=== PATIENT | male | born 1985 | race Caucasian/White ===

== ENCOUNTER 2021-10-15 08:42 | Inpatient (IN) | payer MEDICAID ==
[~2021-10-15] VITALS: Ht 188 cm; Wt 113.9 kg
[2021-10-15] VITALS (10 sets, daily range): BP systolic 122–146; BP diastolic 71–86
--- NOTE | 2021-10-15 08:57 | NUR ---
BIB RA C/O LLQ PAIN RADIATING TO R AND L UPPER QUADRANT. ADMITS N/V. DENIES HX OF ABDOMINAL PROBLEMS. DENIES GERD. AAOX4, BREATHING EVEN AND UNLABORED, PULSES 2+ BILATERALLY, SKIN IS WARM TO TOUCH. ASSISTED TO ER BED 3. COMFORT MEASURES IN PLACE.
[2021-10-15] MEDS ORDERED: ONDANSETRON HCL/PF 4 MG/2 ML VIAL ONE (09:08)
[2021-10-15] MEDS ORDERED: MORPHINE SULFATE INJ 4 MG/ML DISP.SYRIN ONE ×2 (09:09→11:53)
[2021-10-15] MEDS ORDERED: MORPHINE SULFATE INJ 2 MG/ML DISP.SYRIN IV ONE ×2 (09:30→12:00)
[2021-10-15] MEDS ORDERED: IV NS 0.9% 1,000 ML BAG IV ONE ×2 (09:30→12:00)
[2021-10-15] MEDS ORDERED: ONDANSETRON HCL/PF 4 MG/2 ML VIAL IV ONE (09:30)
[2021-10-15 09:33] LABS: BASOPHILS # (AUTO) 0.2 K/uL (0.0-0.2); BASOPHILS % (AUTO) 1.3 % (0.0-2.0); EOSINOPHILS % (AUTO) 0.1 % (0.0-6.0); HEMATOCRIT 47 % (39-51); HEMOGLOBIN 17.6 g/dL (13.5-17.5); LYMPHOCYTES # (AUTO) 0.6 K/uL (0.8-4.8); LYMPHOCYTES % (AUTO) 5.3 % (20.0-44.0); MEAN CORPUSCULAR HGB CONC 38 g/dl (31.0-36.0); MEAN CORPUSCULAR VOLUME 89 fL (80-96); MONOCYTES # (AUTO) 0.8 K/uL (0.1-1.30); MONOCYTES % (AUTO) 6.7 % (2.0-12.0); NEUTROPHILS # (AUTO) 10.2 K/uL (1.8-8.9); NEUTROPHILS % (AUTO) 86.6 % (43.0-81.0); PLATELET COUNT (AUTO) 263 K/uL (150-450); RED BLOOD CELL COUNT(AUTO) 5.22 MIL/uL (4.5-6.0); WHITE BLOOD COUNT (AUTO) 11.8 K/uL (4.3-11.0)
--- NOTE | 2021-10-15 10:08 | NUR ---
IV FLUIDS RUNNING. PT TOLERATING WELL.
--- NOTE | 2021-10-15 10:20 | NUR ---
URINE SPECIMEN WAS COLLECTED AND SENT TO THE LAB
[2021-10-15] MEDS ORDERED: IOHEXOL-300 100 ML VIAL IV ONE (10:39)
[2021-10-15] MEDS ORDERED: IV NS 0.9% 250 ML IV ONE (10:40)
[2021-10-15] MEDS ORDERED: CT SWABBABLE VALVE TRANS SET 1 EA INFUS.SET MC ONE (10:40)
[2021-10-15 11:23] LABS: BILIRUBIN,URINE SMALL (NEGATIVE); COLOR,URINE YELLOW (YELLOW); LEUKOCYTE ESTERASE ,URINE NEGATIVE (NEGATIVE); NITRITE, URINE NEGATIVE (NEGATIVE); PH,URINE 5.5 (5.0-8.0); PROTEIN,URINE NEGATIVE (NEGATIVE); UGLUCOSE 500 MG/DL mg/dL (NEGATIVE); UROBILINOGEN,URINE 0.2 EU/dL (0.2)
[2021-10-15 11:27] LABS: BACTERIA,URINE None seen /HPF (None Seen); RBC,URINE 0-2 /HPF (0-2); SQUAMOUS EPITHELIAL CELL,UR Rare /HPF (None Seen); WBC,URINE NONE SEEN /HPF (0-3)
[2021-10-15 11:55] LABS: ALBUMIN 3.9 g/dL (3.4-5.0); BILIRUBIN,DIRECT 0.1 mg/dL (0.0-0.2); BILIRUBIN,TOTAL 0.9 mg/dL (0.2-1.0); CALCIUM, SERUM 7.7 mg/dL (8.5-10.1); CREATININE 1.2 mg/dL (0.6-1.3); POTASSIUM 5.7 mmol/L (3.5-5.1); TOTAL PROTEIN, SERUM 8.1 g/dL (6.4-8.2)
--- NOTE | 2021-10-15 12:09 | NUR ---
MOVE SHEET SUBMITTED AND CALLED FOR [facility] BED.
--- NOTE | 2021-10-15 12:30 | NUR ---
covid sample obtained and sent to lab
--- NOTE | 2021-10-15 12:37 | NUR ---
US TECH AT THE BEDSIDE
--- NOTE | 2021-10-15 12:39 | NUR ---
CALLED SURGERY DR. LAW [facility] [phone]
--- NOTE | 2021-10-15 12:41 | NUR ---
ACCUCHRUSTY 422, DR PEARSON AWARE
[2021-10-15] MEDS ORDERED: INSULIN REGULAR, HUMAN 100 UNIT/ML 10 ML VIAL IV ONE (13:00)
--- NOTE | 2021-10-15 13:45 | NUR ---
[facility] CALLED ASSOCIATE MERCHANDISER PAGED.
[2021-10-15] MEDS ORDERED: METOCLOPRAMIDE HCL 10 MG/2 ML VIAL ONE (13:53)
[2021-10-15] MEDS ORDERED: HYDROMORPHONE 1 MG/1 ML DISP.SYRIN ONE (13:53)
[2021-10-15] MEDS ORDERED: METOCLOPRAMIDE HCL 10 MG/2 ML VIAL IV ONE (14:00)
[2021-10-15] MEDS ORDERED: HYDROMORPHONE 1 MG/1 ML DISP.SYRIN IV ONE (14:00)
[2021-10-15] MEDS ORDERED: Z GUARD REMEDY 2 OZ OINT TP PRN (15:00)
--- NOTE | 2021-10-15 15:03 | NUR ---
BED 120-1
--- NOTE | 2021-10-15 15:15 | NUR ---
PT TRANSPORTED TO FLOOR WHILE BEING MONITORED.
--- NOTE | 2021-10-15 15:29 | NUR ---
E COMMERCE MERCHANT NOTES RECEIVED PT FROM E.R. NURSE VIA [facility], PT IS AWAKE, ALERT AND ORIENTED, NOT IN DISTRESS, ASSISTED TO BED, MADE COMFORTABLE, VITAL SIGNS TAKEN AND RECORDED, WITH COMPLAINT OF PAIN TO THE LEFT SIDE OF ABDOMEN 7/10, RADIATING TO THE RIGHT SIDE, DR. WANG AT BEDSIDE ASSESSING PT, ORDERED TO TRANSFER PT TO ICU FOR INSULIN DRIP, CHARGE NURSE AND COUNTER WEIGHER INFORMED.
[2021-10-15] MEDS ORDERED: IV NS 0.9% 1,000 ML IV ONE (15:30)
--- NOTE | 2021-10-15 15:45 | NUR ---
REPAIR MECHANIC NOTES TRANSFERED PT TO ICU ROOM 255 VIA ACLS PROTOCOL, PT RECEIVED BY THIRD OFFICER ARPITA, BEDSIDE REPORT GIVEN.
[2021-10-15] MEDS: INSULIN REGULAR, HUMAN 100 UNIT in IV NS 0.9% 99 ML IV PRN (15:58)
--- NOTE | 2021-10-15 16:17 | NUR ---
RN NOTE RECEIVE REPORT BED SIDE WITH TELE NURSE. PATIENT BLOOD SUGAR 426 AT TIME TIME OF ARRIVAL.
[2021-10-15] MEDS ORDERED: BLOOD SUGAR DIAGNOSTIC 1 EACH STRIP IN ONE (17:00)
[2021-10-15] MEDS: IV 1/2NS 1000 ML 1,000 ML IV PRN (17:14)
[2021-10-15] MEDS: ONDANSETRON HCL/PF 4 MG/2 ML VIAL IVP PRN (18:47)
--- NOTE | 2021-10-15 18:56 | NUR ---
NURSE CLOSING NOTE RECEIVE PATIENT FROM BYRAN. PATIENT ON Addendum: 10/15/21 at 1905 by ESSENCE STEARNS RN PATIENT ON ROOM AIR WITH O2 SAT 93% AND ABOVE. SINUS RHYTHM SINUS TACHY. PATIENT IS NPO. ARRIVE TO THE UNIT WITH BLOOD SUGAR OF 426. INSULIN DRIP WAS STARTED AT 8UNITS/HR. ACCU CHEK EVERY HOUR. BLOOD SUGAR TRENDING DOWN. 1000ML NS BOLUS WAS GIVEN. 45% NS DRIPS WAS STARTED AND RUNNING AT 125ML/HR. MORPHINE WAS GIVEN FOR PAIN. ZOFRAN WAS GIVEN FOR NAUSEA. PATIENT HAD ONE EMESIS. PROPER ISOLATION PROTOCOL IN PLACE. ALL SAFETY MEASURE IN PLACE. BED ON LOWEST POSITION WITH 3 SIDE RAIL UP. CALL LIGHT WITHIN REACH. WILL GIVE REPORT TO PUBLIC WORKS TECHNICIAN NURSE.
[2021-10-15] MEDS ORDERED: MORPHINE SULFATE INJ 2 MG/ML DISP.SYRIN IVP PRN (19:00)
[2021-10-15] MEDS ORDERED: BLOOD SUGAR DIAGNOSTIC 1 EACH STRIP IN SCH (19:00)
[2021-10-15] MEDS: BLOOD SUGAR DIAGNOSTIC 1 EACH STRIP IN SCH ×4 (20:00→23:31)
[2021-10-15] MEDS ORDERED: KETOROLAC TROMETHAMINE INJ 30 MG/ML VIAL IM PRN (21:00)
[2021-10-15 21:11] LABS: CREATININE 1.1 mg/dL (0.6-1.3); POTASSIUM 4.1 mmol/L (3.5-5.1)
[2021-10-15 21:14] LABS: CALCIUM, SERUM 5.7 mg/dL (8.5-10.1)
[2021-10-15] MEDS ORDERED: Calcium Gluconate 1GM/10ML 4.65 MEQ in IV D5W 50 ML IV ONE (21:30)
[2021-10-15] MEDS ORDERED: KETOROLAC TROMETHAMINE INJ 30 MG/ML VIAL IV PRN (21:30)
[2021-10-15] MEDS ORDERED: Calcium Gluconate 0.465 MEQ/ML VIAL IV ONE (21:42)
[2021-10-15] MEDS: ACETAMINOPHEN 325 MG TABLET PO PRN (22:10)
--- NOTE | 2021-10-15 22:28 | NUR ---
ICU/RN: SPOKE WITH JOSE NORWOODP GAVE UPDATE ON PT. NEW ORDERS RECEIVED AND CARRIED OUT.
[2021-10-15 23:05] LABS: CHOLESTEROL 462 mg/dL (<200); HDL CHOLESTEROL 51 mg/dL (40-60); LDL 113 mg/dL (0-99)
[2021-10-16] VITALS (25 sets, daily range): BP systolic 97–141; BP diastolic 50–87
[2021-10-16] MEDS: BLOOD SUGAR DIAGNOSTIC 1 EACH STRIP IN SCH ×24 (00:13→23:11)
[2021-10-16] MEDS: ONDANSETRON HCL/PF 4 MG/2 ML VIAL IVP PRN ×3 (00:21→11:42)
[2021-10-16] MEDS: MORPHINE SULFATE INJ 2 MG/ML DISP.SYRIN IV PRN ×6 (00:21→21:03)
[2021-10-16 00:23] LABS: TRIGLYCERIDES > 1000 mg/dL (30-150)
[2021-10-16] MEDS: PROCHLORPERAZINE MALEATE 10 MG TABLET PO PRN ×2 (00:25→11:41)
[2021-10-16] MEDS ORDERED: Calcium Gluconate 1GM/10ML 4.65 MEQ in IV D5W 50 ML IV ONE (01:00)
[2021-10-16] MEDS ORDERED: Calcium Gluconate 0.465 MEQ/ML VIAL IV ONE (01:03)
[2021-10-16] MEDS: INSULIN REGULAR, HUMAN 100 UNIT in IV NS 0.9% 99 ML IV PRN ×2 (01:48→14:15)
[2021-10-16] MEDS: IV 1/2NS 1000 ML 1,000 ML IV PRN ×3 (02:08→22:27)
[2021-10-16 05:09] LABS: BASOPHILS % (AUTO) 0.4 % (0.0-2.0); HEMATOCRIT 47 % (39-51); HEMOGLOBIN 16.5 g/dL (13.5-17.5); LYMPHOCYTES # (AUTO) 0.6 K/uL (0.8-4.8); LYMPHOCYTES % (AUTO) 8.4 % (20.0-44.0); MEAN CORPUSCULAR HGB CONC 35 g/dl (31.0-36.0); MEAN CORPUSCULAR VOLUME 88 fL (80-96); MONOCYTES # (AUTO) 0.4 K/uL (0.1-1.30); MONOCYTES % (AUTO) 5.6 % (2.0-12.0); NEUTROPHILS # (AUTO) 5.7 K/uL (1.8-8.9); NEUTROPHILS % (AUTO) 85.6 % (43.0-81.0); PLATELET COUNT (AUTO) 260 K/uL (150-450); RED BLOOD CELL COUNT(AUTO) 5.35 MIL/uL (4.5-6.0); WHITE BLOOD COUNT (AUTO) 6.7 K/uL (4.3-11.0)
[2021-10-16 05:20] LABS: ALBUMIN 2.8 g/dL (3.4-5.0); BILIRUBIN,TOTAL 0.7 mg/dL (0.2-1.0); CALCIUM, SERUM 6.3 mg/dL (8.5-10.1); CREATININE 1.3 mg/dL (0.6-1.3); MAGNESIUM 1.8 mg/dL (1.8-2.4); PHOSPHORUS 1.5 mg/dL (2.5-4.9); TOTAL PROTEIN, SERUM 7.1 g/dL (6.4-8.2)
--- NOTE | 2021-10-16 07:14 | NUR ---
NURSE OPENING NOTE RECEIVE REPORT FROM FOLDING MACHINE TENDER NURSE. PATIENT IN STABLE CONDITION WITH NO SIGN OF DISTRESS AT TIME OF REPORT. REMAIN ON ROOM AIR WITH O2 SAT OF 93%. REMAIN NPO. CARDIAC RHYTHM SHOWS TACHYCARDIA. TYLENOL WAS GIVEN DURING FOLDING MACHINE TENDER FOR TEMPERATURE OF 102. WILL MONITOR TEMP AND VITAL SIGNS THROUGH OUT SHIFT. INSULIN DRIP IS RUNNING AT ALL SAFETY MEASURE IN PLACE. BED ON LOWEST POSITION WITH HOB ELEVATED. AND 3 SIDE RAIL UP. CALL LIGHT WITHIN REACH. WILL CONTINUE TO MONITOR.
[2021-10-16] MEDS ORDERED: IV NS 0.9% 1,000 ML IV ONE (08:30)
--- NOTE | 2021-10-16 08:30 | NUR ---
RN NOTE USING ALGORITHM 4 FOR INSULIN DRIP. PATIENT CURRENTLY ON 12/HR.
[2021-10-16] MEDS ORDERED: Sodium Phosphate 30 MMOL in IV NS 0.9% 250 ML IV SCH (09:00)
--- NOTE | 2021-10-16 09:22 | NUR ---
RN NOTE WILL USE ALGORITHM 3 FOR INSULIN DRIP. BLOOD SUGAR 166. WILL DECREASE INSULIN DRIP TO 2 UNITS.
[2021-10-16] MEDS: Magnesium 1GM/D5W 100ML PREMIX 100 ML IV SCH ×2 (09:36→10:41)
--- NOTE | 2021-10-16 10:07 | NUR ---
RN NOTE PATIENT BLOOD SUGAR INCREASE FROM 166 TO 171. WILL USE INSULIN DRIP ALGORITHM 4 AND INCREASE INSULIN TO 3 UNIT/HR.
[2021-10-16] MEDS: ACETAMINOPHEN 325 MG TABLET PO PRN (10:45)
--- NOTE | 2021-10-16 11:01 | NUR ---
RN NOTE BLOOD SUGAR 231. INCREASING INSULIN DRIP TO 5 UNIT/HR.
--- NOTE | 2021-10-16 12:27 | NUR ---
RN NOTE PATIENT BLOOD SUGAR INCREASE SLIGHTLY FROM 231 TO 238. WILL USE ALGORITHM 4 FOR INSULIN DRIP. RUNNING 7UNITS/HR.
[2021-10-16 12:40] LABS: CALCIUM, SERUM 6.1 mg/dL (8.5-10.1); CREATININE 1.3 mg/dL (0.6-1.3); POTASSIUM 3.5 mmol/L (3.5-5.1)
--- NOTE | 2021-10-16 14:18 | NUR ---
RN NOTE PATIENT BLOOD SUGAR DECREASE FROM 230 TO 196. FOLLOWING ALGORITHM 4. WILL INCREASE INSULIN DRIP FROM 7UNIT TO 9 UNIT/HR. Addendum: 10/16/21 at 1933 by ESSENCE STEARNS RN INSULIN WAS DECREASE TO 3 UNIT/HR
[2021-10-16 17:04] LABS: CALCIUM, SERUM 6.2 mg/dL (8.5-10.1); CREATININE 1.3 mg/dL (0.6-1.3); POTASSIUM 3.2 mmol/L (3.5-5.1)
[2021-10-16] MEDS: MAG HYDROX/AL HYDROX/SIMETH 30 ML UDC PO PRN ×2 (17:05→23:14)
--- NOTE | 2021-10-16 19:27 | NUR ---
RN CLOSING NOTE PATIENT IN STABLE CONDITION WITH NO SIGN OF DISTRESS. REMAIN ON ROOM AIR WITH O2 SAT 990% AND ABOVE. PATIENT REMAIN ON INSULIN DRIP. LAST BLOOD SUGAR WAS 102. RUNNING DRIP AT 2 UNIT/HR. 1/2 NS. RUNNING AT 125 ML/HR. ALL SAFETY MEASURE IN PLACE. BED ON LOWEST POSITION WITH HOB ELEVATED WITH 3 SIDE RAIL UP. CALL LIGHT WITHIN REACH. REPORT WAS GIVEN TO MAIL READER NURSE.
--- NOTE | 2021-10-16 19:30 | NUR ---
RN NOTE RECEIVED PATIENT IN BED, AWAKE, ALERT, AND VERBALLY RESPONSIVE. ABLE TO MAKE NEEDS KNOWN. BREATHING EVEN AND UNLABORED. DENIES FEELING SOB. TOLERATING ROOM AIR AT THIS TIME WITH OXYGEN SATURATION OF 92 PERCENT. HOB SEMI-LOPES. PATIENT DENIES CHEST PAIN AT THIS TIME. ON TELE MONITORING, SINUS TACHYCARDIA @ 114 BPM. SKIN WARM AND DRY. PATIENT NOTED WITH LEFT HAND 20G PERIPHERAL IV. CURRENTLY RUNNING 1/2 NS AT 125 ML/HR AND INSULIN DRIP AT 2 UNITS/HR. NO INFILTRATION NOTED. BED LOW, IN LOCKED POSITION. CALL LIGHT WITHIN REACH.
[2021-10-16 20:36] LABS: CALCIUM, SERUM 6.1 mg/dL (8.5-10.1); CREATININE 1.3 mg/dL (0.6-1.3); POTASSIUM 3.4 mmol/L (3.5-5.1)
--- NOTE | 2021-10-16 21:03 | NUR ---
RN NOTE PATIENT COMPLAINING OF LEFT UPPER ABDOMINAL PAIN. PAIN IS WORSE WHEN TURNING AND REPOSITIONING. NO REDNESS NOTED ON SITE. PAIN IS PRESENT WHEN PALPATED. PATIENT STATES PAIN IS 9/10 AT THIS TIME. ADMINISTERED MORPHINE 3MG VIA IV PUSH PER MD ORDER. WILL CONTINUE TO MONITOR, CALL LIGHT WITHIN REACH.
--- NOTE | 2021-10-16 23:15 | NUR ---
RN NOTE PATIENT REQUESTING FOR MEDICATION TO RELIEVE GAS. VERBALIZES FEELINGS OF UPSET STOMACH. ADMINISTERED MAALOX 30 ML PER MD ORDER. WILL CONTINUE TO MONITOR, CALL LIGHT WITHIN REACH.
[2021-10-16 23:26] LABS: CALCIUM, SERUM 6.3 mg/dL (8.5-10.1); CREATININE 1.2 mg/dL (0.6-1.3); POTASSIUM 3.3 mmol/L (3.5-5.1)
--- NOTE | 2021-10-16 23:49 | NUR ---
RN NOTE INSERTED PERIPHERAL IV 20G ON RIGHT HAND. PATENT WITH GOOD BLOOD RETURN.
[2021-10-16] MEDS: POTASSIUM CL. PREMIX PERIPHER. 50 ML IV SCH (23:57)
[2021-10-17] VITALS (26 sets, daily range): BP systolic 121–148; BP diastolic 59–102
--- NOTE | 2021-10-17 | NUR ---
RN NOTE INFORMED AIRPLANE INSPECTOR JOSE LEARY, ABOUT PATIENTS BLOOD SUGAR AND CURRENT IV FLUIDS RUNNING, PATIENT IS GETTING 1/2 NS AT 125 ML/HR. PER MD, DOES NOT WANT TO CHANGE IV FLUIDS TO D5 1/2. CONTINUE WITH SAME IV FLUIDS FOR NOW.
[2021-10-17] MEDS: ONDANSETRON HCL/PF 4 MG/2 ML VIAL IVP PRN ×2 (00:07→08:45)
[2021-10-17] MEDS: BLOOD SUGAR DIAGNOSTIC 1 EACH STRIP IN SCH ×13 (00:13→22:24)
[2021-10-17] MEDS: POTASSIUM CL. PREMIX PERIPHER. 50 ML IV SCH (01:14)
[2021-10-17] MEDS: MORPHINE SULFATE INJ 2 MG/ML DISP.SYRIN IV PRN ×4 (01:22→14:08)
--- NOTE | 2021-10-17 01:31 | NUR ---
RN NOTE PATIENT COMPLAINING OF LEFT UPPER ABDOMINAL PAIN. WITHDRAWS FROM LIGHT TOUCH. PATIENT STATES PAIN IS 8/10 AT THIS TIME. ADMINISTERED MORPHINE 3MG VIA IV PUSH PER MD ORDER. WILL CONTINUE TO MONITOR, CALL LIGHT WITHIN REACH.
[2021-10-17] MEDS: IV 1/2NS 1000 ML 1,000 ML IV PRN ×3 (02:59→23:55)
[2021-10-17] MEDS: MAG HYDROX/AL HYDROX/SIMETH 30 ML UDC PO PRN ×2 (05:25→14:07)
[2021-10-17] MEDS: PROCHLORPERAZINE MALEATE 10 MG TABLET PO PRN (05:25)
--- NOTE | 2021-10-17 05:42 | NUR ---
RN NOTE PATIENT COMPLAINING OF PAIN 8/10 FROM HIS LEFT UPPER ABDOMEN, STATES IT RADIATES TO THE RIGHT. ADMINISTERED MORPHINE 3MG PER MD ORDER. PATIENT ALSO COMPLAINING OF GAS AND UPSET STOMACH, ADMINISTERED MAALOX PER MD ORDER. PATIENT ALSO REQUESTING FOR NAUSEA MEDICATION. NO EMESIS NOTED. HOB ELEVATED 30 DEGREES. PATIENT ALSO WITH EPISODE OF ANXIETY, PATIENT STATED HE WAS FEELING CLAUSTROPHOBIC" ADMINISTERED COMPAZINE 10 MG PER MD ORDER. WILL CONTINUE TO MONITOR. CALL LIGHT WITHIN REACH.
[2021-10-17] MEDS: INSULIN REGULAR, HUMAN 100 UNIT in IV NS 0.9% 99 ML IV PRN (07:45)
--- NOTE | 2021-10-17 08:00 | NUR ---
RN OPENING NOTE PT A/O X4 AND NPO. ICE CHIPS OKAY TO GIVE. ON RA SAT >92%. TELE READING SSTACHY. PT UNABLE TO AMBULATE DUE TO WEAKNESS. ABLE TO USE URINAL. IV ACCESS - L HAND #20 AND R HAND #20. INSULIN DRIP RUNNING ON 3 UNITS PER PROTOCOL AND Q1HR ACU-CHECKS. 1/2 NS @125 ML. MORPHINE Q4HRS PT REQUESTS IT ON TIME.
[2021-10-17 08:13] LABS: CALCIUM, SERUM 6.6 mg/dL (8.5-10.1); CREATININE 1.5 mg/dL (0.6-1.3)
--- NOTE | 2021-10-17 09:00 | NUR ---
RN NOTE PT TEMP 100.7. 650 MG TYLENOL GIVEN. WILL FOLLOW UP AND CONTINUE TO MONITOR
[2021-10-17] MEDS: ACETAMINOPHEN 325 MG TABLET PO PRN ×2 (09:46→20:35)
[2021-10-17 09:50] LABS: CALCIUM, SERUM 6.5 mg/dL (8.5-10.1); CREATININE 1.4 mg/dL (0.6-1.3); POTASSIUM 3.5 mmol/L (3.5-5.1)
[2021-10-17] MEDS ORDERED: DEXTROSE 50%-WATER 50 ML DISP.SYRIN IV PRN (10:00)
--- NOTE | 2021-10-17 10:00 | NUR ---
RN NOTE INSULIN DRIP D/C. LAST BS 193 AT 3 UNITS. ORTHOPAEDIC DOCTOR NURSE AWARE. WILL CONTINUE TO MONITOR
[2021-10-17] MEDS: GLIMEPIRIDE 1 MG TABLET PO SCH ×2 (10:17→18:57)
[2021-10-17] MEDS: PIPERACILLIN /TAZOBACTAM 3.375 G in IV D5W 50 ML IV SCH ×3 (11:58→23:57)
[2021-10-17] MEDS: *INSULIN REGULAR(HUMULIN R)HUM 100 UNIT/ML VIAL SQ PRN ×2 (12:14→22:29)
[2021-10-17] MEDS: DOCUSATE SODIUM 100 MG CAPSULE PO SCH ×2 (13:58→18:58)
[2021-10-17] MEDS: ONDANSETRON HCL/PF 4 MG/2 ML VIAL IV PRN ×3 (14:07→23:54)
[2021-10-17] MEDS: INSULIN REGULAR, HUMAN 100 UNIT/ML 3 ML VIAL SQ PRN (18:58)
--- NOTE | 2021-10-17 19:07 | NUR ---
rn notes bs-207 mg/dl coverage given also administered scheduled medication. administered zofran 4 mg/ml iv push for nausea. endorsed oncoming nurse follow plan of care.
--- NOTE | 2021-10-17 19:50 | NUR ---
RN NOTE RECEIVED PATIENT IN BED, AWAKE, ALERT, AND VERBALLY RESPONSIVE. ABLE TO MAKE NEEDS KNOWN. BREATHING EVEN AND UNLABORED. NO SIGNS OF RESPIRATORY DISTRESS. TOLERATING ROOM AIR AT THIS TIME WITH SATURATION OF 91 PERCENT. OFFERED LOW FLOW SUPPLEMENTAL OXYGEN BUT REFUSED. DENIES CHEST PAIN AT THIS TIME. ON TELE MONITORING, SINUS TACHYCARDIA AT THIS TIME. PATIENT COMPLAINING OF MILD PAIN 2/10 ON LEFT UPPER ABDOMEN WHEN STAYING STILL BUT GETS WORSE WHEN REPOSITIONING. NOTED WITH LEFT FOREARM 20G AND RIGHT FOREARM 20G, PATENT. NO INFILTRATION NOTED. CURRENTLY RUNNING 1/2 NS AT 90 CC/HR. BED SIDE COMMODE PRESENT. BED LOW, IN LOCKED POSITION. CALL LIGHT WITHIN REACH.
--- NOTE | 2021-10-17 20:07 | NUR ---
RN NOTE PATIENT NOTED WITH LEFT HAND PERIPHERAL IV 20G, DISLODGED. APPLIED PRESSURE ON SITE, CATHETER INTACT. IV 1/2 NS SWITCHED TO THE RIGHT HAND 20G. PATENT. NO INFILTRATION NOTED. WILL CONTINUE TO MONITOR.
--- NOTE | 2021-10-17 20:35 | NUR ---
RN NOTE PATIENT NOTED WITH TEMPERATURE OF 100.2F VIA ORAL ROUTE AT THIS TIME. NO CHILLS/COUGH NOTED. SKIN WARM AND DRY. ADMINISTERED TYLENOL 650 MG PER MD ORDER. WILL CONTINUE TO MONITOR.
--- NOTE | 2021-10-17 23:54 | NUR ---
RN NOTE PATIENT COMPLAINING OF NAUSEA. NO EMESIS PRESENT. ADMINISTERED ZOFRAN PER MD ORDER. PROVIDED WITH EMESIS BAG. HEAD OF BED ELEVATED 35 DEGREES. PROVIDED ICE CHIPS. WILL CONTINUE TO MONITOR. CALL LIGHT WITHIN REACH.
[2021-10-18] VITALS (11 sets, daily range): BP systolic 125–148; BP diastolic 66–78
[2021-10-18] MEDS: MORPHINE SULFATE INJ 2 MG/ML DISP.SYRIN IV PRN ×4 (00:33→13:12)
--- NOTE | 2021-10-18 00:33 | NUR ---
RN NOTE PATIENT COMPLAING OF PAIN IN THE LEFT UPPER ABDOMEN. STATES PAIN IS "SURGING" AND IS REDIATING TO THE STERNUM. NO REDNESS NOTED. STATES PAIN IS WORSE WHEN MOVING. RATES PAIN 8/10 AT THIS TIME. ADMINISTERED MORPHINE 2MG PER MD ORDER. WILL CONTINUE TO MONITOR. CALL LIGHT WITHIN REACH.
[2021-10-18] MEDS: ONDANSETRON HCL/PF 4 MG/2 ML VIAL IV PRN ×5 (04:33→22:30)
--- NOTE | 2021-10-18 04:34 | NUR ---
RN NOTE PATIENT COMPLAINING OF LEFT UPPER QUADRANT PAIN 8/10 THAT RADIATES TO THE BACK. NO REDNESS/SKIN DISCOLORATION NOTED. ADMINISTERED MORPHINE 2 MG PER MD ORDER. PATIENT ALSO COMPLAINING OF NAUSEA. NO EPISODE OF EMESIS. HOB ELEVATED. PROVIDED EMESIS BAG. OFFERED ICE CHIPS. ADMINISTERED ZOFRAN 4 MG PER MD ORDER. WILL CONTINUE TO MONITOR. CALL LIGHT WITHIN REACH.
[2021-10-18] MEDS: PIPERACILLIN /TAZOBACTAM 3.375 G in IV D5W 50 ML IV SCH ×3 (04:57→16:22)
--- NOTE | 2021-10-18 06:26 | NUR ---
RN NOTE REPORT GIVEN TO [facility] CHARGE NURSE AT 0600, ADIN. PATIENT TRANSFERRED IN STABLE CONDITION AT THIS TIME.
[2021-10-18 07:25] LABS: BASOPHILS % (AUTO) 0.2 % (0.0-2.0); EOSINOPHILS % (AUTO) 1.1 % (0.0-6.0); HEMATOCRIT 34 % (39-51); LYMPHOCYTES # (AUTO) 0.6 K/uL (0.8-4.8); LYMPHOCYTES % (AUTO) 11.4 % (20.0-44.0); MEAN CORPUSCULAR HGB CONC 34 g/dl (31.0-36.0); MEAN CORPUSCULAR VOLUME 88 fL (80-96); MONOCYTES # (AUTO) 0.4 K/uL (0.1-1.30); MONOCYTES % (AUTO) 7.8 % (2.0-12.0); NEUTROPHILS # (AUTO) 4.1 K/uL (1.8-8.9); NEUTROPHILS % (AUTO) 79.5 % (43.0-81.0); PLATELET COUNT (AUTO) 140 K/uL (150-450); RED BLOOD CELL COUNT(AUTO) 3.81 MIL/uL (4.5-6.0); WHITE BLOOD COUNT (AUTO) 5.2 K/uL (4.3-11.0)
--- NOTE | 2021-10-18 07:30 | NUR ---
MS RN NOTES. RECEIVED PATIENT IN BED. ALERT AND ORIENTED TIMES 4. ASSISTED THE PATIENT TO BATHROOM. ABLE TO WALK WITHOUT ISSUES. NO SOB NOTED. NO RESPIRATORY DISTRESS NOTED. SKIN INTACT. IV ACCESS ON THE RIGHT HAND G#20 INTACT AND PATENT. NO PAIN NOTED. SAFETY PRECAUTION IN PLACE. BED IN THE LOWEST POSITION AND LOCKED. CALL LIGHT AND TABLE WITHIN REACH. WILL CONTINUE TO MONITOR.
[2021-10-18] MEDS: BLOOD SUGAR DIAGNOSTIC 1 EACH STRIP IN SCH ×4 (08:16→21:18)
[2021-10-18] MEDS: MAG HYDROX/AL HYDROX/SIMETH 30 ML UDC PO PRN ×2 (08:21→16:19)
[2021-10-18] MEDS: ACETAMINOPHEN 325 MG TABLET PO PRN ×2 (08:24→21:39)
[2021-10-18] MEDS: IV 1/2NS 1000 ML 1,000 ML IV PRN (08:28)
[2021-10-18] MEDS: GLIMEPIRIDE 1 MG TABLET PO SCH ×2 (09:26→16:19)
[2021-10-18] MEDS: DOCUSATE SODIUM 100 MG CAPSULE PO SCH ×2 (09:26→16:20)
[2021-10-18 13:03] LABS: HEMOGLOBIN 11.3 g/dL (13.5-17.5)
[2021-10-18] MEDS: SIMETHICONE 80 MG TAB.CHEW PO PRN ×2 (13:57→13:58)
[2021-10-18] MEDS: INSULIN REGULAR, HUMAN 100 UNIT/ML 3 ML VIAL SQ PRN ×2 (15:17→17:20)
[2021-10-18] MEDS ORDERED: PANTOPRAZOLE 40 MG VIAL IV SCH (16:00)
[2021-10-18] MEDS: LORAZEPAM INJ 2 MG/ML VIAL IV PRN (16:20)
[2021-10-18] MEDS: MORPHINE SULFATE INJ 4 MG/ML DISP.SYRIN IV PRN ×2 (18:10→22:31)
--- NOTE | 2021-10-18 18:40 | NUR ---
MS RN NOTES. PATIENT IN BED. ALERT AND ORIENTED TIMES 4. ASSISTED THE PATIENT TO BATHROOM. ABLE TO WALK WITHOUT ISSUES. NO SOB NOTED. NO RESPIRATORY DISTRESS NOTED. SKIN INTACT. IV ACCESS ON THE RIGHT HAND G#20 INTACT AND PATENT. ALL DUE MEDS GIVEN ORDERED.NO PAIN NOTED. SAFETY PRECAUTION IN PLACE. BED IN THE LOWEST POSITION AND LOCKED. CALL LIGHT ANDTABLE WITHIN REACH . WILL ENDORSE FOR NIRAJ TO INCOMING SHIFT.
--- NOTE | 2021-10-18 19:30 | NUR ---
MS RN OPENING NOTE RECEIVED PT AWAKE IN BED. A/O X4. PT STABLE ON ROOM AIR. NO SOB OR S/S OF RESPIRATORY DISTRESS NOTED. IV ACCESS ON THE RIGHT HAND G#20 RUNNING 1/2 NS @ 90 ML/HR, INTACT AND PATENT. SAFETY PRECAUTION IN PLACE. BED IN THE LOWEST LOCKED POSITION, HOB ELEVATED,SIDE RAILS UP X2, AND CALL LIGHT AND TABLE WITHIN REACH . WILL CONTINUE WITH PLAN OF CARE.
[2021-10-18 20:13] LABS: ALBUMIN 2.2 g/dL (3.4-5.0); BILIRUBIN,TOTAL 0.5 mg/dL (0.2-1.0); CREATININE 1.1 mg/dL (0.6-1.3); POTASSIUM 3.5 mmol/L (3.5-5.1); TOTAL PROTEIN, SERUM 5.4 g/dL (6.4-8.2)
[2021-10-18 20:26] LABS: PHOSPHORUS 1.5 mg/dL (2.5-4.9)
[2021-10-18] MEDS ORDERED: MEROPENEM 1 G in IV NS 0.9% 100 ML IV ONE (20:30)
[2021-10-18] MEDS ORDERED: MEROPENEM 1 G in IV NS 0.9% 100 ML IV SCH (20:30)
[2021-10-18] MEDS ORDERED: MEROPENEM 1 G VIAL IV ONE (20:55)
[2021-10-18] MEDS: *INSULIN REGULAR(HUMULIN R)HUM 100 UNIT/ML VIAL SQ PRN (21:26)
--- NOTE | 2021-10-18 21:39 | NUR ---
RN NOTE PT COMPLAINED ABOUT A HEADACHE 2/10, ACHING. ADMINISTERED TYLENOL 650 MG FOR PAIN ORDERED. WILL CONTINUE TO MONITOR.
--- NOTE | 2021-10-18 22:30 | NUR ---
RN NOTE PT COMPLAINED ABOUT PAIN 8/10 IN THE ABDOMEN, ACHING AND THROBBING. ADMINISTERED MORPHINE SULFATE 4 MG ORDERED FOR PAIN. PT ALSO COMPLAINED ABOUT NAUSEA. ADMINISTERED ZOFRAN 4 MG ORDERED FOR NAUSEA. VSS. WILL CONTINUE TO MONITOR.
[2021-10-19] MEDS: MAG HYDROX/AL HYDROX/SIMETH 30 ML UDC PO PRN ×3 (00:01→17:44)
[2021-10-19] MEDS: SIMETHICONE 80 MG TAB.CHEW PO PRN ×3 (00:02→17:44)
--- NOTE | 2021-10-19 00:02 | NUR ---
RN NOTE PT COMPLAINED ABOUT GAS AND DYSPEPSIA. ADMINISTERED MAALOX AND SIMETHICONE ORDERED. VSS. WILL CONTINUE TO MONITOR.
[2021-10-19] MEDS: LORAZEPAM INJ 2 MG/ML VIAL IV PRN ×3 (01:04→19:52)
--- NOTE | 2021-10-19 01:04 | NUR ---
RN NOTE PT COMPLAINED OF ANXIETY AND REQUESTED ATIVAN. ADMINISTERED ATIVAN 0.5 MG ORDERED FOR ANXIETY. WILL CONTINUE TO MONITOR.
[2021-10-19] MEDS: IV 1/2NS 1000 ML 1,000 ML IV PRN (02:21)
[2021-10-19] MEDS: ONDANSETRON HCL/PF 4 MG/2 ML VIAL IV PRN ×5 (02:50→21:10)
[2021-10-19] MEDS: MORPHINE SULFATE INJ 4 MG/ML DISP.SYRIN IV PRN ×5 (02:51→21:11)
[2021-10-19] MEDS: BLOOD SUGAR DIAGNOSTIC 1 EACH STRIP IN SCH ×4 (06:30→21:33)
[2021-10-19] MEDS: INSULIN REGULAR, HUMAN 100 UNIT/ML 3 ML VIAL SQ PRN ×3 (06:31→18:27)
--- NOTE | 2021-10-19 06:50 | NUR ---
MS RN CLOSING NOTE PT AWAKE IN BED. A/O X4. PT STABLE ON ROOM AIR. NO SOB OR S/S OF RESPIRATORY DISTRESS NOTED. IV ACCESS ON THE RIGHT HAND G#20 RUNNING 1/2 NS @ 90 ML/HR, INTACT AND PATENT. ALL NEEDS MET AT THIS TIME. SAFETY PRECAUTION IN PLACE AT ALL TIMES. BED IN THE LOWEST LOCKED POSITION, HOB ELEVATED,SIDE RAILS UP X2, AND CALL LIGHT AND TABLE WITHIN REACH . WILL ENDORSE TO ONCOMING NURSE FOR NIRAJ.
--- NOTE | 2021-10-19 07:30 | NUR ---
MS RN NOTES. RECEIVED PATIENT IN BED. ALERT AND ORIENTED TIMES 4. ASSISTED THE PATIENT TO BATHROOM. ABLE TO WALK WITHOUT ISSUES. NO SOB NOTED. NO RESPIRATORY DISTRESS NOTED. SKIN INTACT. IV ACCESS ON THE RIGHT HAND G#20 INTACT AND PATENT. SAFETY PRECAUTION IN PLACE. BED IN THE LOWEST POSITION AND LOCKED. CALL LIGHT AND TABLE WITHIN REACH. WILL CONTINUE TO MONITOR.
[2021-10-19] MEDS: MEROPENEM 1 G in IV NS 0.9% 100 ML IV SCH ×3 (07:41→22:07)
[2021-10-19 08:00] VITALS: BP 138/76
[2021-10-19] MEDS: GLIMEPIRIDE 1 MG TABLET PO SCH ×2 (09:04→17:44)
[2021-10-19] MEDS: DOCUSATE SODIUM 100 MG CAPSULE PO SCH ×2 (09:05→17:44)
[2021-10-19 16:00] VITALS: BP 140/73
--- NOTE | 2021-10-19 19:30 | NUR ---
MS RN CLOSING NOTES. PATIENT IN BED. ALERT AND ORIENTED TIMES 4. ASSISTED THE PATIENT TO BATHROOM. ABLE TO WALK WITHOUT ISSUES. NO SOB NOTED. NO RESPIRATORY DISTRESS NOTED. SKIN INTACT. IV ACCESS ON THE LEFT HAND G#20 INTACT AND PATENT. ALL DUE MEDS GIVEN ORDERED.NO PAIN NOTED. SAFETY PRECAUTION IN PLACE. BED IN THE LOWEST POSITION AND LOCKED. CALL LIGHT AND TABLE WITHIN REACH . WILL ENDORSE FOR NIRAJ TO INCOMING SHIFT.
--- NOTE | 2021-10-19 19:30 | NUR ---
MS RN OPENING NOTE RECEIVED PT AWAKE IN BED. A/O X4. PT STABLE ON ROOM AIR. NO SOB OR S/S OF RESPIRATORY DISTRESS NOTED. IV ACCESS ON THE LEFT HAND G#20 RUNNING 1/2 NS @ 90 ML/HR, INTACT AND PATENT. SAFETY PRECAUTION IN PLACE. BED IN THE LOWEST LOCKED POSITION, HOB ELEVATED,SIDE RAILS UP X2, AND CALL LIGHT AND TABLE WITHIN REACH . WILL CONTINUE WITH PLAN OF CARE.
--- NOTE | 2021-10-19 19:52 | NUR ---
RN NOTE PT COMPLAINED OF ANXIETY AND REQUESTED ATIVAN. ADMINISTERED ATIVAN 0.5 MG ORDERED FOR ANXIETY. WILL CONTINUE TO MONITOR.
[2021-10-19 20:00] VITALS: BP 145/75
[2021-10-19] MEDS: IV LR 1000 ML 1,000 ML IV PRN (21:12)
[2021-10-19] MEDS: *INSULIN REGULAR(HUMULIN R)HUM 100 UNIT/ML VIAL SQ PRN (21:48)
[2021-10-20] MEDS: ONDANSETRON HCL/PF 4 MG/2 ML VIAL IV PRN ×6 (01:27→22:15)
[2021-10-20] MEDS: MORPHINE SULFATE INJ 4 MG/ML DISP.SYRIN IV PRN ×6 (01:27→22:16)
[2021-10-20] MEDS: LORAZEPAM INJ 2 MG/ML VIAL IV PRN ×4 (04:01→23:23)
[2021-10-20] MEDS: SIMETHICONE 80 MG TAB.CHEW PO PRN ×3 (04:01→22:32)
[2021-10-20] MEDS: MAG HYDROX/AL HYDROX/SIMETH 30 ML UDC PO PRN ×3 (04:01→22:32)
--- NOTE | 2021-10-20 04:01 | NUR ---
RN NOTE PT COMPLAINED OF ANXIETY AND REQUESTED ATIVAN. ADMINISTERED ATIVAN 0.5 MG ORDERED FOR ANXIETY. PT ALSO COMPLAINED ABOUT GAS AND DYSPEPSIA. ADMINISTERED SIMETHICONE AND MAALOX ORDERED. VSS. WILL CONTINUE TO MONITOR.
[2021-10-20] MEDS: BLOOD SUGAR DIAGNOSTIC 1 EACH STRIP IN SCH ×4 (06:35→21:30)
[2021-10-20] MEDS: INSULIN REGULAR, HUMAN 100 UNIT/ML 3 ML VIAL SQ PRN ×4 (06:38→21:35)
[2021-10-20] MEDS: MEROPENEM 1 G in IV NS 0.9% 100 ML IV SCH ×3 (06:39→23:18)
[2021-10-20 06:54] LABS: BASOPHILS % (AUTO) 0.6 % (0.0-2.0); HEMATOCRIT 31 % (39-51); HEMOGLOBIN 10.6 g/dL (13.5-17.5); LYMPHOCYTES # (AUTO) 0.8 K/uL (0.8-4.8); MEAN CORPUSCULAR HGB CONC 35 g/dl (31.0-36.0); MEAN CORPUSCULAR VOLUME 87 fL (80-96); MONOCYTES % (AUTO) 19.4 % (2.0-12.0); NEUTROPHILS # (AUTO) 3.4 K/uL (1.8-8.9); PLATELET COUNT (AUTO) 131 K/uL (150-450); RED BLOOD CELL COUNT(AUTO) 3.52 MIL/uL (4.5-6.0); WHITE BLOOD COUNT (AUTO) 5.4 K/uL (4.3-11.0)
--- NOTE | 2021-10-20 06:54 | NUR ---
MS RN CLOSING NOTE PT AWAKE IN BED. A/O X4. PT STABLE ON ROOM AIR. NO SOB OR S/S OF RESPIRATORY DISTRESS NOTED. IV ACCESS ON THE LEFT HAND G#20 RUNNING LR @ 125 ML/HR, INTACT AND PATENT. ALL NEEDS MET AT THIS TIME. SAFETY PRECAUTION IN PLACE AT ALL TIMES. BED IN THE LOWEST LOCKED POSITION, HOB ELEVATED,SIDE RAILS UP X2, AND CALL LIGHT AND TABLE WITHIN REACH . WILL ENDORSE TO ONCOMING NURSE FOR NIRAJ.
[2021-10-20 08:00] VITALS: BP 137/67
--- NOTE | 2021-10-20 08:00 | NUR ---
RN OPENING NOTE PT AWAKE IN BED RESTING. ON RA WITH NO SOB PRESENT. A/O X4 AND TAJIK SPEAKING. ON CERTIFIED DIABETES EDUCATOR. BATHROOM PRIVILEGES AND SELF AMBULATORY. STEADY GAIT. L HAND 20G IV PRESENT. LABS AND ORDERS CHECKED. SAFETY MEASURES IN PLACE. SIDE RAILS RAISED. BED LOWERED. CALL LIGHT WITHIN REACH. WILL CONTINUE TO MONITOR.
[2021-10-20 08:09] LABS: ALBUMIN 1.9 g/dL (3.4-5.0); BILIRUBIN,TOTAL 0.8 mg/dL (0.2-1.0); CALCIUM, SERUM 7.6 mg/dL (8.5-10.1); CREATININE 0.8 mg/dL (0.6-1.3); MAGNESIUM 2.2 mg/dL (1.8-2.4); PHOSPHORUS 1.7 mg/dL (2.5-4.9); TOTAL PROTEIN, SERUM 6.1 g/dL (6.4-8.2)
[2021-10-20] MEDS: PANTOPRAZOLE 40 MG TABLET.DR PO SCH (08:22)
[2021-10-20] MEDS: DOCUSATE SODIUM 100 MG CAPSULE PO SCH ×2 (08:22→17:28)
[2021-10-20] MEDS: FENOFIBRATE NANOCRYS (145 MG) 145 MG TABLET PO SCH (08:22)
[2021-10-20] MEDS: GLIMEPIRIDE 1 MG TABLET PO SCH ×2 (08:22→17:28)
[2021-10-20] MEDS ORDERED: POTASSIUM PHOSPHATE MM 15 MMOL in IV NS 0.9% 250 ML IV SCH (11:00)
[2021-10-20] MEDS: POTASSIUM CHLORIDE 20 MEQ POWDER PACKET PO SCH ×3 (11:10→12:30)
--- NOTE | 2021-10-20 11:56 | NUR ---
SS Consult requested by pt. for Hx of PTSD. SW will follow up at a later time.
[2021-10-20 16:00] VITALS: BP 133/70
--- NOTE | 2021-10-20 18:54 | NUR ---
RN CLOSING NOTE PT IN STABLE CONDITION. GIVE REPORT TO NIGHT NURSE FOR NIRAJ
[2021-10-20 20:00] VITALS: BP 134/71
--- NOTE | 2021-10-20 20:10 | NUR ---
MS RN NOTES RECEIVED LAYING COMFORTABLY ON BED,A/O X4,BREATHING REGULAR,NOT IN ANY FORM OF DISTRESS,SALINE LOCK LEFT HAND INTACT AND PATENT.NO COMPLAINTS AT THE MOMENT.CALL LIGHT IN REACH,NEEDS ANTICIPATED.
[2021-10-20 21:00] VITALS: BP 134/71
--- NOTE | 2021-10-20 21:30 | NUR ---
MS RN NOTES ACCU-CHECK BLOOD SUGAR CHECK 124,NO INSULIN COVERAGE.
--- NOTE | 2021-10-20 21:40 | NUR ---
MS RN NOTES ACCU-CHECK BLOOD SUGAR CHECK 169,COVERED WITH HUMULIN R 4 UNITS PER SLIDING SCALE.
--- NOTE | 2021-10-20 22:15 | NUR ---
MS RN NOTES CO NAUSEA,ZOFRAN 4MG IV GIVEN
--- NOTE | 2021-10-20 22:16 | NUR ---
MS RN NOTES PAIN MANAGEMENT C/O GENERALIZED PAIN 8/10 ON PAIN SCALE4,MORPHINE 4MG IV GIVEN PER PATIENT REQUEST,WITH ORDER.
--- NOTE | 2021-10-20 22:32 | NUR ---
MS RN NOTES FEELING BLOATED,MAALOX 30ML AND MYLICON 80MG PO GIVE PER PATIENT REQUEST.
--- NOTE | 2021-10-20 23:20 | NUR ---
MS RN NOTES DUE MERREM 1GM IV HUNG
--- NOTE | 2021-10-20 23:23 | NUR ---
MS RN NOTES FEELING ANXIOUS,ATIVAN 0.5MG IV GIVEN ORDERED.
[2021-10-21] MEDS: MORPHINE SULFATE INJ 4 MG/ML DISP.SYRIN IV PRN ×5 (03:25→20:31)
--- NOTE | 2021-10-21 03:25 | NUR ---
MS RN NOTES PAIN MANAGEMENT C/O ABDOMINAL PAIN 8/10 ON PAIN SCALE,MORPHINE 4MG IV GIVEN ORDERED
[2021-10-21] MEDS: ONDANSETRON HCL/PF 4 MG/2 ML VIAL IV PRN ×5 (03:26→20:30)
--- NOTE | 2021-10-21 03:26 | NUR ---
MS RN NOTES FEELING NAUSEATED,ZOFRAN 4MG IV GIVEN ORDERED.
[2021-10-21] MEDS: LORAZEPAM INJ 2 MG/ML VIAL IV PRN ×3 (05:34→23:55)
--- NOTE | 2021-10-21 05:34 | NUR ---
MS RN NOTES FEELING ANXIOUS,ATIVAN 0.5MG IV GIVEN FOR ANXIETY
[2021-10-21] MEDS: IV LR 1000 ML 1,000 ML IV PRN (05:38)
[2021-10-21] MEDS: BLOOD SUGAR DIAGNOSTIC 1 EACH STRIP IN SCH ×4 (05:57→21:51)
[2021-10-21] MEDS: INSULIN REGULAR, HUMAN 100 UNIT/ML 3 ML VIAL SQ PRN ×2 (06:05→11:32)
[2021-10-21] MEDS: MEROPENEM 1 G in IV NS 0.9% 100 ML IV SCH ×3 (06:21→23:10)
--- NOTE | 2021-10-21 06:43 | NUR ---
MS RN NOTES STILL WITH ON AND OFF ABDOMINAL PAIN ,MANAGE WITH MORPHINE 4MG ORDERED,IVF LR AT 125ML/HR RATE IN PROGRESS,IV ABX INFUSING THIS TIME SCHEDULED..FOR CT ABDOMEN/PELVIS WITH OUT CONTRAST,CALL LIGHT IN REACH,NEEDS ATTENDED
[2021-10-21 06:48] LABS: CALCIUM, SERUM 8.3 mg/dL (8.5-10.1); CREATININE 0.9 mg/dL (0.6-1.3)
--- NOTE | 2021-10-21 07:16 | NUR ---
RN NOTES PATIENT IN BED AWAKE AND VERBALLY RESPONSIVE. A/O X4, ABLE TO MAKE NEEDS KNOWN. BREATHING EVEN AND UNLABORED ON ROOM AIR. VERBALIZED PAIN MGT REGIMEN. IV LINE INTACT AND PATENT, IVF INFUSING. NO COMPLAINT OF NAUSEA/VOMITING AT THIS TIME. SAFETY MEASURES IN PLACE. WILL CONTINUE TO MONITOR.
[2021-10-21] MEDS: PANTOPRAZOLE 40 MG TABLET.DR PO SCH (07:41)
[2021-10-21 07:54] LABS: POTASSIUM 2.6 mmol/L (3.5-5.1)
[2021-10-21 08:00] VITALS: BP 125/66
[2021-10-21] MEDS ORDERED: POTASSIUM CHLORIDE 20 MEQ TAB.PRT.SR PO ONE (09:00)
[2021-10-21] MEDS ORDERED: POTASSIUM CL. PREMIX PERIPHER. 50 ML IV SCH (09:00)
[2021-10-21] MEDS: DOCUSATE SODIUM 100 MG CAPSULE PO SCH ×2 (09:13→16:31)
[2021-10-21] MEDS: GLIMEPIRIDE 1 MG TABLET PO SCH ×2 (09:13→16:31)
[2021-10-21] MEDS: FENOFIBRATE NANOCRYS (145 MG) 145 MG TABLET PO SCH (09:13)
[2021-10-21] MEDS: MAG HYDROX/AL HYDROX/SIMETH 30 ML UDC PO PRN ×2 (09:21→17:37)
[2021-10-21] MEDS: SIMETHICONE 80 MG TAB.CHEW PO PRN ×2 (09:21→17:37)
[2021-10-21 11:01] LABS: THYROID STIMULATING HORMONE 3.074 uIU/mL (0.358-3.74)
[2021-10-21] MEDS: POTASSIUM CHLORIDE 10 MEQ TABLET.SA PO SCH ×2 (11:08→11:16)
[2021-10-21] MEDS: POTASSIUM CHLORIDE 20 MEQ TAB.PRT.SR PO SCH ×5 (11:08→14:24)
[2021-10-21 11:22] LABS: MAGNESIUM 2.2 mg/dL (1.8-2.4); PHOSPHORUS 2.3 mg/dL (2.5-4.9)
[2021-10-21] MEDS: VANCOMYCIN 1.25 GM in IV D5W 250 ML IV SCH ×2 (13:47→20:29)
--- NOTE | 2021-10-21 15:15 | NUR ---
RN NOTES PATIENT TAKEN TO RADIOLOGY FOR CT SCAN VIA WHEELCHAIR, ACCOMPANIED BY SHASHANK TRUJILLO
--- NOTE | 2021-10-21 15:18 | NUR ---
SS Consult: Patient requested to speak with SW regarding his mental health. The pt. is a 36-year-old male patient that was admitted to the Med surg for acute pancreatitis & DKA per EMR. Upon SS consult, the pt. is A&O x 4 and makes appropriate eye contact. The pt. appears unkempt and presents with a dysphoric mood and affect. Pt. remained calm & cooperative throughout interview. SW explored pt.s living situation. Per the pt., he resides at home [[address] [facility] [address]; [phone]] alone. SW explored pt.s drug & ETOH use. Pt. denies drug or alcohol use. SW explored pt.s mental health Hx. Per the pt., diagnosed with PTSD, depression, anxiety and was previously on medication. However, per pt. he stopped taking his medication during the pandemic and has not been taking care of himself at home appropriately and his home is unkempt. Pt. denies current SI/HI and denies current hallucinations. SW used motivational interviewing, provided emotional support and encouraged pt. to resumes psychiatric and counseling services he previously partook in. Pt. verbalized that he realizes he need to resume his mental health treatment to get my life back in order. MAYA provided pt. with mental health resources. Pt. stated he will get [employer] benefits soon and will call to see what psychiatrists and therapists [employer] covers. Noted. Pt. states he receives SSDI. Per pt. he is independent with all his ADLs. SW explored pt.s support system. Per pt. he did not want to discuss this. Plan: Pt. stated he would like to return home once ready for discharge. Patient will follow up with resources provided. MAYA discussed situation with pt.s nurse, Dillan and SW requested Psych Consult as pt. is agreeable. Dillan stated he will notify MD. MAYA provided pt. with the following mental health resources. Counseling--[facility] [address] [place] [address] (Specializes in in-depth psychotherapy for emotional distress: anxiety, depression, interpersonal conflicts, life transitions, childhood abuse) [address] [address] (Assist with solving problem marital difficulties, separation & divorce, aging parents, & grief, chronic & terminal illness) [facility] [address] [place] [address] (Deal with loss & grief, anxiety, marital difficulties) Homebound/Mental Health Services [address] [place] [address] (Provide in-home mental services to people who are incapable of leaving their homes) [facility] [address] [place] [address] [facility] [address] [place] [address] PSYCHIATRIC OUTPATIENT SERVICES [facility] Partial Hospitalization and Intensive Outpatient Program (Managed Care and [place] Only) [address] [facility] [address]; [phone] [facility] Partial Hospitalization and Outpatient Program [address] [place] [address]; [phone] [facility] Partial Hospitalization and Outpatient Program [address] [facility] [address] [place] [address]; [phone] [facility] [id number] [facility] [facility] [place], [place] [phone] [facility] Partial Hospitalization and Outpatient [id number] [place], [place] ; [phone] ;[phone] [facility] [address] [place] [address] Mental Health Services [address] [place] [address] Services: Outpatient therapy for children, teens, young adults, adults, older adults, and families; Psychiatric services, medication support [place] [facility] and Hotline Telephone Numbers: 24-Hour service unless stated [place] Mental Health/Crisis Line........[phone] Suicide Prevention Center (24 Hours).......[phone] Suicide Prevention Crisis Center.......[phone] (24 Hours) Alcoholics Anonymous (24 Hours)..........[phone] [place] [facility] Hotlines: Alcohol and Drug Helpline - Provides referrals to local facilities where adolescents and adults can seek help. Brief intervention. [facility] Helpline [facility] [place] [facility] 4-733-236-BENJI National Youth Crisis Hotline [facility] Provides free information on specific disorders, referral directory to mental health providers, national directory of local mental health associations (M-F, 9-5 EST) [facility] [place] [facility] Information Line: Provide sinformation and literature on mental illness by disorder-for professionals and general public.
[2021-10-21 16:00] VITALS: BP 114/61
[2021-10-21] MEDS ORDERED: NEUTRA PHOS 1 POWD.PACKET NG ONE (16:30)
[2021-10-21] MEDS: ACETAMINOPHEN 325 MG TABLET PO PRN (16:39)
--- NOTE | 2021-10-21 18:55 | NUR ---
RN NOTES PATIENT IN BED AWAKE AND VERBALLY RESPONSIVE. A/O X4, ABLE TO MAKE NEEDS KNOWN. AMBULATES W/ STEADY GAIT. BREATHING EVEN AND UNLABORED ON ROOM AIR, NO ACUTE DISTRESS. IV LINE INTACT, FLUIDS ON HOLD AT THIS TIME. IV ATB ADMINISTERED ORDERED. DUE MEDS GIVEN. PATIENT TOLERATES FULL LIQUID DIET AT THIS TIME; C/O NAUSEA W/ MORPHINE, BUT MEDICATED W/ ZOFRAN INDICATED. SAFETY MEASURES MAINTAINED. WILL ENDORSE TO CASING IN LINE SETTER RN FOR NIRAJ.
--- NOTE | 2021-10-21 19:15 | NUR ---
MS RN NOTES RECEIVED LAYING COMFORTABLY ON BED A/O X4,BREATHING REGULAR,NOT IN ANY FORM OF DISTRESS,SALINE LOCK LEFT HAND LEAKING WHEN FLUSHED WITH NS.STILL COMPLAINTS OF ABDOMINAL,WILL MEDICATE WHEN ITS DUE ON HIS PAIN MEDICINE.AMBULATE TO THE RESTROOM WITH STANDBY ASSIST.,CALL LIGHT IN REACH,NEEDS ANTICIPATED.
--- NOTE | 2021-10-21 19:30 | NUR ---
MS RN NOTES NEW SALINE LOCK PLACE ON LEFT AC #20,FLUSHED WITH NS AND KEPT PATENT AND SECURED.
[2021-10-21 20:00] VITALS: BP 107/58
--- NOTE | 2021-10-21 20:30 | NUR ---
MS RN NOTES FEELING NAUSEATED,ZOFRAN 4MG IV GIVEN ORDERED.
--- NOTE | 2021-10-21 20:31 | NUR ---
MS RN NOTES PAIN MANAGEMENT C/O ABDOMINAL PAIN 8/10 ON PAIN SCALE,MORPHINE 4MG IV GIVEN ORDERED FOR STRONG PAIN.
[2021-10-21 21:00] VITALS: BP 107/58
--- NOTE | 2021-10-21 21:00 | NUR ---
MS RN NOTES DUE VANCOMYCIN 1.25GM HUNG
[2021-10-21] MEDS: *INSULIN REGULAR(HUMULIN R)HUM 100 UNIT/ML VIAL SQ PRN (21:58)
--- NOTE | 2021-10-21 22:00 | NUR ---
Eliana RN NOTES ACCU-CHECK BLOOD SUGAR CHECK 146,COVERED WITH HUMULIN R 2 UNITS PER SLIDING SCALE.
--- NOTE | 2021-10-21 23:55 | NUR ---
MS RN NOTES FEELING ANXIOUS,ATIVAN 0.5MG IV GIVEN PER PATIENT REQUEST.
[2021-10-22] MEDS: ONDANSETRON HCL/PF 4 MG/2 ML VIAL IV PRN ×6 (01:07→22:28)
[2021-10-22] MEDS: MORPHINE SULFATE INJ 4 MG/ML DISP.SYRIN IV PRN ×6 (01:07→22:28)
--- NOTE | 2021-10-22 01:07 | NUR ---
MS RN NOTES PAIN MANAGEMENT AWAKE,C/O ABDOMINAL PAIN,MORPHINE 4MG IV GIVEN ORDERED,ALONG WITH ZOFRAN 4MG IV TO COUNTER ACT SIDE EFFECTS OF MORPHINE.
[2021-10-22] MEDS: SIMETHICONE 80 MG TAB.CHEW PO PRN ×3 (04:00→22:54)
[2021-10-22] MEDS: MAG HYDROX/AL HYDROX/SIMETH 30 ML UDC PO PRN ×3 (04:00→22:54)
--- NOTE | 2021-10-22 04:00 | NUR ---
MS RN NOTES AWAKE,FEELING OF HAVING A LOT OF GAS,MYLICON 80MG PO GIVEN ORDERED ALONG WITH MAALOX 30ML PO PER PATIENT REQUEST.
[2021-10-22] MEDS: VANCOMYCIN 1.25 GM in IV D5W 250 ML IV SCH ×3 (04:32→21:47)
[2021-10-22] MEDS: BLOOD SUGAR DIAGNOSTIC 1 EACH STRIP IN SCH ×4 (05:25→22:00)
[2021-10-22] MEDS: INSULIN REGULAR, HUMAN 100 UNIT/ML 3 ML VIAL SQ PRN ×3 (05:30→18:21)
[2021-10-22] MEDS: LORAZEPAM INJ 2 MG/ML VIAL IV PRN ×3 (06:43→20:03)
[2021-10-22] MEDS: MEROPENEM 1 G in IV NS 0.9% 100 ML IV SCH ×3 (06:44→23:31)
[2021-10-22 06:52] LABS: BASOPHILS % (AUTO) 0.3 % (0.0-2.0); EOSINOPHILS % (AUTO) 1.5 % (0.0-6.0); HEMATOCRIT 29 % (39-51); HEMOGLOBIN 9.9 g/dL (13.5-17.5); LYMPHOCYTES # (AUTO) 0.8 K/uL (0.8-4.8); LYMPHOCYTES % (AUTO) 9.8 % (20.0-44.0); MEAN CORPUSCULAR HGB CONC 34 g/dl (31.0-36.0); MEAN CORPUSCULAR VOLUME 87 fL (80-96); MONOCYTES # (AUTO) 0.8 K/uL (0.1-1.30); MONOCYTES % (AUTO) 9.2 % (2.0-12.0); NEUTROPHILS # (AUTO) 6.7 K/uL (1.8-8.9); NEUTROPHILS % (AUTO) 79.2 % (43.0-81.0); PLATELET COUNT (AUTO) 145 K/uL (150-450); RED BLOOD CELL COUNT(AUTO) 3.36 MIL/uL (4.5-6.0); WHITE BLOOD COUNT (AUTO) 8.5 K/uL (4.3-11.0)
--- NOTE | 2021-10-22 07:06 | NUR ---
MS RN NOTES ON BED A/O X4,STILL ASKING FOR PAIN MANAGEMENT ON THE DOT WHEN ITS TIME BECAUSE HE SET ALARM FOR IT,OTHERWISE IMPROVING,FEELING BETTER VERBALIZED BY PATIENT.
[2021-10-22 07:22] LABS: ALBUMIN 1.8 g/dL (3.4-5.0); BILIRUBIN,TOTAL 0.5 mg/dL (0.2-1.0); CALCIUM, SERUM 7.9 mg/dL (8.5-10.1); CREATININE 0.9 mg/dL (0.6-1.3); MAGNESIUM 2.1 mg/dL (1.8-2.4); PHOSPHORUS 2.2 mg/dL (2.5-4.9); POTASSIUM 3.2 mmol/L (3.5-5.1); TOTAL PROTEIN, SERUM 5.6 g/dL (6.4-8.2)
--- NOTE | 2021-10-22 07:40 | NUR ---
RN OPENING NOTES Patient seen comfortably lying in bed, no SOB, no apparent distress noted, breathing even and unlabored, denies any pain or discomfort at this time, no grimacing. Call light left within reach, safety precautions in place, brakes locked, side rails up X 2, will monitor closely for any changes.
[2021-10-22 08:00] VITALS: BP 126/74
[2021-10-22] MEDS: FENOFIBRATE NANOCRYS (145 MG) 145 MG TABLET PO SCH (08:06)
[2021-10-22] MEDS: DOCUSATE SODIUM 100 MG CAPSULE PO SCH ×2 (08:06→17:50)
[2021-10-22] MEDS: PANTOPRAZOLE 40 MG TABLET.DR PO SCH (08:06)
[2021-10-22] MEDS: GLIMEPIRIDE 1 MG TABLET PO SCH ×2 (08:06→17:50)
[2021-10-22] MEDS: POTASSIUM CHLORIDE 20 MEQ TAB.PRT.SR PO SCH ×3 (09:28→11:03)
[2021-10-22] MEDS: NEUTRA PHOS 1 POWD.PACKET PO SCH ×2 (09:28→17:50)
[2021-10-22 16:00] VITALS: BP 114/58
--- NOTE | 2021-10-22 18:43 | NUR ---
RN CLOSING NOTES Patient lying in bed, no SOB, respirations even and unlabored, no dizziness, no palpitations, no apparent distress noted. All medications given per MD order, tolerating well. Pain medication, anti-anxiety, anti-nausea, anti-gas medication given per MD order as needed when non pharmacological measures ineffective. Insulin given per sliding scale per MD order, no s/s of hypo or hyperglycemia, no tremors, no change in level of consciousness. All needs anticipated, kept clean and dry, call light left within reach, safety precautions in place, brakes locked, side rails up X 2, will endorse to next shift for continuity of care.
--- NOTE | 2021-10-22 19:49 | NUR ---
RN OPENING NOTES: RECEIVED PATIENT SLEEP IN BED COMFORTABLY, BED IN LOW POSITION, CALL LIGHTS WITHIN REACH, NO COMPLAIN OF PAIN AND DISCOMFORT AT THIS TIME, PATIENT IS A/OX4 ABLE TO EXPRESS NEEDS, FULL LIQUIDS WITH WITH LAC#20 PATIENT, PATIENT KEPT CLEAN AND DRY, ALL NEEDS MET, WILL CONTINUE TO MONITOR.
[2021-10-22 20:00] VITALS: BP 100/56
[2021-10-22] MEDS: *INSULIN REGULAR(HUMULIN R)HUM 100 UNIT/ML VIAL SQ PRN (23:30)
[2021-10-23] MEDS: LORAZEPAM INJ 2 MG/ML VIAL IV PRN ×4 (02:16→20:34)
[2021-10-23] MEDS: ACETAMINOPHEN 325 MG TABLET PO PRN ×2 (02:25→17:07)
[2021-10-23] MEDS: MORPHINE SULFATE INJ 4 MG/ML DISP.SYRIN IV PRN ×5 (03:19→21:48)
[2021-10-23] MEDS: ONDANSETRON HCL/PF 4 MG/2 ML VIAL IV PRN ×5 (03:19→22:10)
[2021-10-23] MEDS: VANCOMYCIN 1.25 GM in IV D5W 250 ML IV SCH ×3 (05:10→20:39)
--- NOTE | 2021-10-23 05:57 | NUR ---
RN CLOSING NOTES: PATIENT SLEEP IN BED COMFORTABLY, BED IN LOW POSITION, CALL LIGHTS WITHIN REACH, NO COMPLAIN OF PAIN AND DISCOMFORT AT THIS TIME, PATIENT IS A/OX4 ABLE TO MAKE NEEDS KNOWN, AMBULATORY WITH IV LINE AT LAC#20SL, PATIENT KEPT CLEAN AND DRY, ALL NEEDS MET ENDORSE TO INCOMING SHIFT.
[2021-10-23 07:15] LABS: BASOPHILS % (AUTO) 0.2 % (0.0-2.0); EOSINOPHILS % (AUTO) 1.2 % (0.0-6.0); HEMATOCRIT 31 % (39-51); HEMOGLOBIN 10.5 g/dL (13.5-17.5); LYMPHOCYTES # (AUTO) 0.9 K/uL (0.8-4.8); LYMPHOCYTES % (AUTO) 11.8 % (20.0-44.0); MEAN CORPUSCULAR HGB CONC 34 g/dl (31.0-36.0); MEAN CORPUSCULAR VOLUME 88 fL (80-96); MONOCYTES # (AUTO) 0.5 K/uL (0.1-1.30); MONOCYTES % (AUTO) 5.9 % (2.0-12.0); NEUTROPHILS # (AUTO) 6.4 K/uL (1.8-8.9); NEUTROPHILS % (AUTO) 80.9 % (43.0-81.0); PLATELET COUNT (AUTO) 156 K/uL (150-450); RED BLOOD CELL COUNT(AUTO) 3.55 MIL/uL (4.5-6.0); WHITE BLOOD COUNT (AUTO) 7.9 K/uL (4.3-11.0)
--- NOTE | 2021-10-23 07:40 | NUR ---
RN OPENING NOTES Patient seen comfortably lying in bed, breathing even and unlabored, no SOB, no apparent distress noted, denies any pain or discomfort at this time, no grimacing. Call light left within reach, safety precautions in place, brakes locked, side rails up X 2, will monitor closely for any changes.
[2021-10-23 08:00] VITALS: BP 112/66
[2021-10-23] MEDS: GLIMEPIRIDE 1 MG TABLET PO SCH ×2 (08:24→17:00)
[2021-10-23] MEDS: SIMETHICONE 80 MG TAB.CHEW PO PRN ×2 (08:24→20:44)
[2021-10-23] MEDS: FENOFIBRATE NANOCRYS (145 MG) 145 MG TABLET PO SCH (08:24)
[2021-10-23] MEDS: DOCUSATE SODIUM 100 MG CAPSULE PO SCH ×2 (08:24→17:06)
[2021-10-23] MEDS: MAG HYDROX/AL HYDROX/SIMETH 30 ML UDC PO PRN ×2 (08:24→20:53)
[2021-10-23] MEDS: PANTOPRAZOLE 40 MG TABLET.DR PO SCH (08:24)
[2021-10-23] MEDS: MEROPENEM 1 G in IV NS 0.9% 100 ML IV SCH ×3 (08:25→23:22)
[2021-10-23 09:01] LABS: ALBUMIN 2.1 g/dL (3.4-5.0); BILIRUBIN,TOTAL 0.5 mg/dL (0.2-1.0); CALCIUM, SERUM 8.2 mg/dL (8.5-10.1); MAGNESIUM 2.2 mg/dL (1.8-2.4); POTASSIUM 3.2 mmol/L (3.5-5.1); TOTAL PROTEIN, SERUM 6.3 g/dL (6.4-8.2)
[2021-10-23] MEDS ORDERED: IOHEXOL-350 100 ML VIAL IV ONE (09:30)
[2021-10-23] MEDS ORDERED: CT SWABBABLE VALVE TRANS SET 1 EA INFUS.SET MC ONE (09:30)
[2021-10-23] MEDS ORDERED: IV NS 0.9% 250 ML IV ONE (09:30)
[2021-10-23] MEDS: BLOOD SUGAR DIAGNOSTIC 1 EACH STRIP IN SCH ×3 (13:03→21:41)
[2021-10-23] MEDS ORDERED: POTASSIUM CL. PREMIX PERIPHER. 50 ML IV SCH (14:00)
[2021-10-23 16:00] VITALS: BP 110/54
[2021-10-23] MEDS: POTASSIUM CL. PREMIX PERIPHER. 50 ML IV SCH ×3 (17:06→22:09)
--- NOTE | 2021-10-23 18:23 | NUR ---
RN CLOSING NOTES Patient lying in bed, no apparent distress noted, no SOB, breathing even and unlabored, no dizziness, no palpitations, all medications given per MD order, tolerating well. No s/s of hypo or hyperglycemia, no tremors, no change in level of consciousness. Pain medication, anti-anxiety, anti-nausea, anti-gas medication given per MD order as needed when non pharmacological measures ineffective. All needs anticipated, kept clean and dry, safety precautions in place, brakes locked, side rails up X 2, call light left within reach, will endorse to next shift for continuity of care.
[2021-10-23 20:54] VITALS: BP 115/63
[2021-10-24] MEDS ORDERED: IV LR 500 ML IV SCH
[2021-10-24] MEDS: IV LR 1000 ML 1,000 ML IV PRN ×2 (00:46→18:20)
[2021-10-24] MEDS: MORPHINE SULFATE INJ 4 MG/ML DISP.SYRIN IV PRN ×5 (01:46→23:45)
[2021-10-24] MEDS: ONDANSETRON HCL/PF 4 MG/2 ML VIAL IV PRN ×5 (02:15→23:44)
[2021-10-24] MEDS: LORAZEPAM INJ 2 MG/ML VIAL IV PRN ×4 (02:31→18:31)
--- NOTE | 2021-10-24 04:32 | NUR ---
ALERT AND ORIENTATED X4 MORPHINE 4 MG [id number] REQUISTED WHEN GIVEN IS EFFECTIVE ZOFRAN 4 MG Q4 HOURS REQUISTED WHEN GIVEN EFFECTIVE ATIVAN REQUISTED Q6 HOURS AND EFFECTIVE HE SETS HIS CLOCK/PHONE TO WAKE HIM TO TAKE THE MEDICATION prn THAT HE IS ORDERED RESP EVEN AND UNLABORED MYLICON GIVEN FOR HIS C/O GAS AND EFFECTIVE IV SITE CHANGED D/T INFILTRATION
[2021-10-24] MEDS: VANCOMYCIN 1.25 GM in IV D5W 250 ML IV SCH (04:49)
[2021-10-24] MEDS: SIMETHICONE 80 MG TAB.CHEW PO PRN ×3 (04:57→23:46)
[2021-10-24] MEDS: BLOOD SUGAR DIAGNOSTIC 1 EACH STRIP IN SCH ×3 (06:34→20:55)
[2021-10-24 06:50] LABS: BASOPHILS % (AUTO) 0.4 % (0.0-2.0); EOSINOPHILS % (AUTO) 1.6 % (0.0-6.0); HEMATOCRIT 29 % (39-51); HEMOGLOBIN 9.7 g/dL (13.5-17.5); LYMPHOCYTES # (AUTO) 0.7 K/uL (0.8-4.8); MEAN CORPUSCULAR HGB CONC 34 g/dl (31.0-36.0); MEAN CORPUSCULAR VOLUME 87 fL (80-96); MONOCYTES # (AUTO) 0.5 K/uL (0.1-1.30); NEUTROPHILS # (AUTO) 7.1 K/uL (1.8-8.9); PLATELET COUNT (AUTO) 163 K/uL (150-450); RED BLOOD CELL COUNT(AUTO) 3.29 MIL/uL (4.5-6.0); WHITE BLOOD COUNT (AUTO) 8.4 K/uL (4.3-11.0)
[2021-10-24] MEDS: MEROPENEM 1 G in IV NS 0.9% 100 ML IV SCH ×3 (07:05→23:30)
[2021-10-24 07:28] LABS: BILIRUBIN,TOTAL 0.6 mg/dL (0.2-1.0); CREATININE 1.2 mg/dL (0.6-1.3); POTASSIUM 3.2 mmol/L (3.5-5.1); TOTAL PROTEIN, SERUM 6.1 g/dL (6.4-8.2)
--- NOTE | 2021-10-24 07:45 | NUR ---
RN OPENING NOTES PATIENT AWAKE IN BED RESTING, AWAKE. A/O X4. NO S/S OF PAIN NOTED AT THIS TIME. ON ROOM AIR, NO DISTRESS OR SHORTNESS OF BREATH NOTED. IV LEFT HAND #20G, INTACT AND PATENT. FALL AND SAFETY MEASURES IN PLACE, BED IN LOW AND LOCK POSITION, CALL LIGHT AND TABLE WITHIN EASY REACH, SIDE RAILS UP X2. WILL CONTINUE TO MONITOR.
[2021-10-24] MEDS: DOCUSATE SODIUM 100 MG CAPSULE PO SCH ×2 (08:32→18:29)
[2021-10-24] MEDS: ACETAMINOPHEN 325 MG TABLET PO PRN (08:32)
[2021-10-24] MEDS: PANTOPRAZOLE 40 MG TABLET.DR PO SCH (08:33)
[2021-10-24] MEDS: GLIMEPIRIDE 1 MG TABLET PO SCH ×2 (08:33→18:29)
[2021-10-24] MEDS: FENOFIBRATE NANOCRYS (145 MG) 145 MG TABLET PO SCH (08:33)
[2021-10-24 08:44] VITALS: BP 104/60
[2021-10-24] MEDS: POTASSIUM CHLORIDE 20 MEQ TAB.PRT.SR PO SCH ×5 (10:21→14:00)
[2021-10-24] MEDS: GABAPENTIN 300 MG CAPSULE PO SCH ×2 (12:54→18:30)
[2021-10-24] MEDS: KETOROLAC TROMETHAMINE INJ 30 MG/ML VIAL IV SCH ×2 (12:55→18:30)
[2021-10-24] MEDS: VANCOMYCIN 1 GM in IV D5W 250 ML IV SCH ×2 (13:57→20:32)
[2021-10-24] MEDS: MAG HYDROX/AL HYDROX/SIMETH 30 ML UDC PO PRN ×2 (14:24→23:50)
[2021-10-24 15:46] VITALS: BP 105/62
--- NOTE | 2021-10-24 16:40 | NUR ---
RN NOTES PATIENT POTASSIUM WAS 3.2 HE GOT 3 TABLES OF POTASSIUM CHLORIDE TODAY.
--- NOTE | 2021-10-24 19:00 | NUR ---
MS RN OPENING NOTES: RECEIVED REPORT AT PATIENT'S BEDSIDE. NO CHANGE FROM PREVIOUS CLOSING ASSESSMENT. PATIENT IN NAD AND VSS AT THIS TIME. PATIENT COMMUNICATIVE, VERBALIZING OF WHEN HIS "PAIN MEDS" AND "ATIVAN" IS DUE. DISCUSSED WITH PATIENT THAT WHEN HE IS IN PAIN AND/OR DEMONSTRATING S/SX OF ANXIETY/RESTLESSNESS TO LET ME KNOW AND WE WILL DISCUSS PRN MEDICATIONS ACCORDINGLY PER PRN ORDERS. PATIENT VERBALIZES UNDERSTANDING. DEMONSTRATES ABILITY TO USE CALL LIGHT AND VERBALIZE NEEDS EFFECTIVELY. CALL LIGHT WITHIN REACH. BED IN LOW, LOCKED POSITION. HOB ELEVATED 30 DEGREES.
--- NOTE | 2021-10-24 19:00 | NUR ---
RN CLOSING NOTES PATIENT AWAKE IN BED RESTING, AWAKE. A/O X4. NO S/S OF PAIN NOTED AT THIS TIME. ON ROOM AIR, NO DISTRESS OR SHORTNESS OF BREATH NOTED. IV LEFT HAND #20G, INTACT AND PATENT. FALL AND SAFETY MEASURES IN PLACE, BED IN LOW AND LOCK POSITION, CALL LIGHT AND TABLE WITHIN EASY REACH, SIDE RAILS UP X2. WILL ENDORSE TO BEND SORTER.
[2021-10-24 20:00] VITALS: BP 114/60
[2021-10-24] MEDS: oxyCODONE/APAP (5/325 MG) 1 UDTAB TABLET PO PRN (20:31)
[2021-10-24] MEDS: *INSULIN REGULAR(HUMULIN R)HUM 100 UNIT/ML VIAL SQ PRN (20:56)
[2021-10-25] MEDS: LORAZEPAM INJ 2 MG/ML VIAL IV PRN ×4 (02:05→22:18)
[2021-10-25] MEDS: ACETAMINOPHEN 325 MG TABLET PO PRN (03:45)
[2021-10-25] MEDS: VANCOMYCIN 1 GM in IV D5W 250 ML IV SCH (04:00)
[2021-10-25] MEDS: oxyCODONE/APAP (5/325 MG) 1 UDTAB TABLET PO PRN ×3 (05:18→17:59)
[2021-10-25] MEDS: ONDANSETRON HCL/PF 4 MG/2 ML VIAL IV PRN ×4 (05:25→22:26)
[2021-10-25] MEDS: PANTOPRAZOLE 40 MG TABLET.DR PO SCH (06:53)
[2021-10-25] MEDS: BLOOD SUGAR DIAGNOSTIC 1 EACH STRIP IN SCH ×4 (06:53→22:26)
[2021-10-25] MEDS: MEROPENEM 1 G in IV NS 0.9% 100 ML IV SCH ×3 (06:53→23:40)
[2021-10-25 07:24] LABS: BASOPHILS % (AUTO) 0.4 % (0.0-2.0); EOSINOPHILS % (AUTO) 2.2 % (0.0-6.0); HEMATOCRIT 26 % (39-51); HEMOGLOBIN 8.5 g/dL (13.5-17.5); LYMPHOCYTES # (AUTO) 0.6 K/uL (0.8-4.8); LYMPHOCYTES % (AUTO) 7.6 % (20.0-44.0); MEAN CORPUSCULAR HGB CONC 33 g/dl (31.0-36.0); MEAN CORPUSCULAR VOLUME 87 fL (80-96); MONOCYTES # (AUTO) 0.5 K/uL (0.1-1.30); MONOCYTES % (AUTO) 6.4 % (2.0-12.0); NEUTROPHILS # (AUTO) 6.8 K/uL (1.8-8.9); NEUTROPHILS % (AUTO) 83.4 % (43.0-81.0); PLATELET COUNT (AUTO) 150 K/uL (150-450); RED BLOOD CELL COUNT(AUTO) 2.93 MIL/uL (4.5-6.0); WHITE BLOOD COUNT (AUTO) 8.1 K/uL (4.3-11.0)
[2021-10-25 07:28] LABS: CALCIUM, SERUM 8.1 mg/dL (8.5-10.1); CREATININE 1.2 mg/dL (0.6-1.3); POTASSIUM 3.5 mmol/L (3.5-5.1)
[2021-10-25 08:00] VITALS: BP 110/61
--- NOTE | 2021-10-25 08:00 | NUR ---
RN OPENING NOTE PT IN BED RESTING. NO SIGNS OF DISTRESS. NO COMPLAINT OF PAIN OR NAUSEA. IV LINE CHECKED AND FLUSHES WELL. SAFETY MEASURES IN PLACE. SIDE RAILS RAISED. BED LOWERED. CALL LIGHT WITHIN REACH. WILL CONTINUE TO MONITOR.
[2021-10-25] MEDS: GABAPENTIN 300 MG CAPSULE PO SCH ×3 (08:35→16:11)
[2021-10-25] MEDS: DOCUSATE SODIUM 100 MG CAPSULE PO SCH ×2 (08:35→16:11)
[2021-10-25] MEDS: GLIMEPIRIDE 1 MG TABLET PO SCH ×2 (08:35→16:11)
[2021-10-25] MEDS: FENOFIBRATE NANOCRYS (145 MG) 145 MG TABLET PO SCH (08:35)
[2021-10-25] MEDS: SIMETHICONE 80 MG TAB.CHEW PO PRN (08:36)
[2021-10-25 08:51] LABS: ALBUMIN 1.8 g/dL (3.4-5.0); BILIRUBIN,TOTAL 0.5 mg/dL (0.2-1.0); CALCIUM, SERUM 7.8 mg/dL (8.5-10.1); CREATININE 1.3 mg/dL (0.6-1.3); MAGNESIUM 2.2 mg/dL (1.8-2.4); POTASSIUM 3.6 mmol/L (3.5-5.1); TOTAL PROTEIN, SERUM 5.5 g/dL (6.4-8.2)
[2021-10-25] MEDS: KETOROLAC TROMETHAMINE INJ 30 MG/ML VIAL IV SCH ×2 (09:00→16:11)
[2021-10-25] MEDS: MAG HYDROX/AL HYDROX/SIMETH 30 ML UDC PO PRN ×2 (10:02→22:26)
[2021-10-25] MEDS: MORPHINE SULFATE INJ 4 MG/ML DISP.SYRIN IV PRN ×2 (12:59→22:18)
--- NOTE | 2021-10-25 14:00 | NUR ---
RN NOTE 4 MG MORPHINE UNABLE TO BE SCANNED. ADMINISTRATION WITNESSED BY SECOND RN AND PHARMACY NOTIFIED. WILL CONTINUE TO MONITOR.
--- NOTE | 2021-10-25 14:11 | NUR ---
RN NOTE REPORT GIVEN TO MAURA PALM AT [facility] FOR [facility]. PT TO TRANSPORT OUT OF HOSPITAL AT 1400
[2021-10-25] MEDS: ENOXAPARIN SODIUM 40 MG/0.4 ML DISP.SYRIN SQ SCH (15:35)
[2021-10-25 16:00] VITALS: BP 120/58
--- NOTE | 2021-10-25 18:34 | NUR ---
RN CLOSING NOTE PT IN BED RESTING. ALL NEEDS MET. PT IN COMFORTABLE POSITION. NO SIGNS OF DISTRESS. NO COMPLAINT OF PAIN OR NAUSEA. IV LINE INTACT. FLUSHES WELL. CALL LIGHT WITHIN REACH. BED LOWERED. SIDE RAILS RAISED. WILL GIVE REPORT TO NIGHT NURSE FOR [facility].
[2021-10-25 20:00] VITALS: BP 108/48
[2021-10-25] MEDS: VANCOMYCIN 0.75 GM in IV D5W 250 ML IV SCH (22:28)
[2021-10-26] MEDS: IV LR 1000 ML 1,000 ML IV PRN (03:02)
[2021-10-26] MEDS: oxyCODONE/APAP (5/325 MG) 1 UDTAB TABLET PO PRN (03:12)
[2021-10-26] MEDS: VANCOMYCIN 0.75 GM in IV D5W 250 ML IV SCH ×2 (05:25→12:29)
[2021-10-26] MEDS: PANTOPRAZOLE 40 MG TABLET.DR PO SCH (05:30)
[2021-10-26] MEDS: ONDANSETRON HCL/PF 4 MG/2 ML VIAL IV PRN ×3 (05:30→20:31)
[2021-10-26] MEDS: SIMETHICONE 80 MG TAB.CHEW PO PRN (05:30)
[2021-10-26] MEDS: MORPHINE SULFATE INJ 4 MG/ML DISP.SYRIN IV PRN ×3 (05:31→20:31)
[2021-10-26] MEDS: INSULIN REGULAR, HUMAN 100 UNIT/ML 3 ML VIAL SQ PRN (05:46)
--- NOTE | 2021-10-26 05:50 | NUR ---
MS RN OPENING NOTES: RECEIVED REPORT. ON ASSESSMENT, NO CHANGE FROM PREVIOUS CLOSING ASSESSMENT. PATIENT IN NAD AND VSS AT THIS TIME. IV TO R FA RUNNING LR @ 100ML/HR. IV SITE WITHOUT S/SX OF INFILTRATION OR PHLEBITIS, DRESSING C/D/I. PATIENT'S MENTATION IS TO BASELINE. BED IN LOW, LOCKED POSITION. DEMONSTRATES ABILITY TO USE CALL LIGHT AND VERBALIZE NEEDS EFFECTIVELY. CALL LIGHT AND FREQUENTLY USED ITEMS WITHIN REACH. Addendum: 10/26/21 at 0556 by MAX WILKINSON RN MS OPENING NOTE FOR 10/25/21 @ 0599
[2021-10-26 06:35] LABS: BASOPHILS % (AUTO) 0.3 % (0.0-2.0); EOSINOPHILS % (AUTO) 2.3 % (0.0-6.0); HEMATOCRIT 27 % (39-51); HEMOGLOBIN 9.3 g/dL (13.5-17.5); LYMPHOCYTES # (AUTO) 0.7 K/uL (0.8-4.8); LYMPHOCYTES % (AUTO) 9.3 % (20.0-44.0); MEAN CORPUSCULAR HGB CONC 34 g/dl (31.0-36.0); MEAN CORPUSCULAR VOLUME 87 fL (80-96); MONOCYTES # (AUTO) 0.6 K/uL (0.1-1.30); MONOCYTES % (AUTO) 7.6 % (2.0-12.0); NEUTROPHILS # (AUTO) 6.1 K/uL (1.8-8.9); NEUTROPHILS % (AUTO) 80.5 % (43.0-81.0); PLATELET COUNT (AUTO) 182 K/uL (150-450); RED BLOOD CELL COUNT(AUTO) 3.13 MIL/uL (4.5-6.0); WHITE BLOOD COUNT (AUTO) 7.6 K/uL (4.3-11.0)
[2021-10-26] MEDS: MEROPENEM 1 G in IV NS 0.9% 100 ML IV SCH ×3 (07:11→23:47)
[2021-10-26 07:25] LABS: CALCIUM, SERUM 8.2 mg/dL (8.5-10.1); CREATININE 1.4 mg/dL (0.6-1.3)
[2021-10-26] MEDS: BLOOD SUGAR DIAGNOSTIC 1 EACH STRIP IN SCH ×4 (07:38→23:12)
--- NOTE | 2021-10-26 07:39 | NUR ---
MS RN CLOSING NOTES: PATIENT IN NAD AT THIS TIME. VSS. PATIENT PERSEVERATES OVER PRN MEDICATIONS AND EXPECTS THEM (ALL OF THEM) TO BE ADMINISTERED ATC. DISCUSSED WITH PATIENT THE IMPORTANCE OF TAKING MEDICATIONS WHEN S/SX PRESENT AND WARRANT ADMINISTRATION. PATIENT VERBALIZES UNDERSTANDING. BED IN LOW, LOCKED POSITION, HOB ELEVATED 30 DEGREES. DEMONSTRATES ABILITY TO USE CALL LIGHT AND VERBALIZE NEEDS EFFECTIVELY. CALL LIGHT AND FREQUENTLY USED ITEMS WITHIN REACH.
--- NOTE | 2021-10-26 07:49 | NUR ---
RN OPENING NOTES PATIENT AWAKE IN BED RESTING, AWAKE. A/O X4. NO S/S OF PAIN NOTED AT THIS TIME. ON ROOM AIR, NO DISTRESS OR SHORTNESS OF BREATH NOTED. IV RFA #22G, INTACT AND PATENT. FALL AND SAFETY MEASURES IN PLACE, BED ALARM ON, BED IN LOW AND LOCK POSITION, CALL LIGHT AND TABLE WITHIN EASY REACH, SIDE RAILS UP X2. WILL CONTINUE TO MONITOR.
[2021-10-26 08:00] VITALS: BP 113/65
[2021-10-26 08:57] LABS: MAGNESIUM 2.1 mg/dL (1.8-2.4); PHOSPHORUS 3.6 mg/dL (2.5-4.9)
[2021-10-26] MEDS: GLIMEPIRIDE 1 MG TABLET PO SCH ×2 (09:34→17:56)
[2021-10-26] MEDS: DOCUSATE SODIUM 100 MG CAPSULE PO SCH ×2 (09:34→17:56)
[2021-10-26] MEDS: FENOFIBRATE NANOCRYS (145 MG) 145 MG TABLET PO SCH (09:34)
[2021-10-26] MEDS: GABAPENTIN 300 MG CAPSULE PO SCH ×3 (09:35→17:56)
[2021-10-26] MEDS: KETOROLAC TROMETHAMINE INJ 30 MG/ML VIAL IV SCH ×2 (09:35→17:56)
[2021-10-26] MEDS: LORAZEPAM INJ 2 MG/ML VIAL IV PRN ×2 (09:35→17:55)
[2021-10-26] MEDS: ENOXAPARIN SODIUM 40 MG/0.4 ML DISP.SYRIN SQ SCH (09:37)
[2021-10-26 16:00] VITALS: BP 124/59
--- NOTE | 2021-10-26 19:37 | NUR ---
RN CLOSING NOTES PATIENT AWAKE IN BED RESTING, AWAKE. A/O X4. NO S/S OF PAIN NOTED AT THIS TIME. ON ROOM AIR, NO DISTRESS OR SHORTNESS OF BREATH NOTED. IV RFA #22G, INTACT AND PATENT. FALL AND SAFETY MEASURES IN PLACE, BED ALARM ON, BED IN LOW AND LOCK POSITION, CALL LIGHT AND TABLE WITHIN EASY REACH, SIDE RAILS UP X2. WILL ENDORSE TO SUPERVISOR [employer]ASS[employer]SEM[employer].
--- NOTE | 2021-10-26 19:45 | NUR ---
MS RN OPENING NOTE PATIENT AWAKE IN BED, ALERT/ORIENTED X 4, PT ABLE TO MAKE NEEDS KNOWN. PATIENT REPORTING A LOT OF ANXIETY REGARDING POSSIBLE DISCHARGE, PT STATES HE DOESN'T FEEL READY AND EQUIPPED TO GO HOME. PATIENT STATES THAT HE WAS SUFFERING FROM DEPRESSION BEFORE ADMISSION AND WASN'T ABLE TO CARE FOR SELF AND IS AFRAID OF THAT HAPPENING AGAIN ONCE HE'S DISCHARGED, STATES THAT HE DOESN'T FEEL HIS CONCERNS HAVE BEEN ACKNOWLEDGED. PATIENT COMPLAINING OF NAUSEA AND ABDOMINAL PAIN AFTER EATING WHOLE FOOD. RIGHT WRIST #24G INTACT AND FLUSHING WELL, RIGHT FOREARM #22G RUNNING LR @ 100 ML/HR. PATIENT AMBULATORY WITH BRP. SAFETY MEASURES IN PLACE: CALL LIGHT WITHIN REACH, SIDE RAILS UP X 2, BED LOCKED IN LOW POSITION. WILL CONTINUE TO MONITOR PATIENT
[2021-10-26 20:00] VITALS: BP 112/58
[2021-10-26] MEDS ORDERED: LORAZEPAM INJ 2 MG/ML VIAL IV ONE (23:00)
--- NOTE | 2021-10-26 23:00 | NUR ---
MS RN NOTE CALLED DR. COUCH REGARDING PATIENT'S INCREASED ANXIETY. PER PATIENT, CURRENT ATIVAN DOSE HAS BEEN INEFFECTIVE AND STATES HE'S HAVING A PANIC ATTACK. NEW ORDER FOR ONE TIME DOSE OF ATIVAN 1 MG IV, ORDER VERIFIED AND CARRIED OUT. WILL CONTINUE TO MONITOR PATIENT
--- NOTE | 2021-10-27 07:00 | NUR ---
MS RN OPENING NOTE RECEIVED Pt AWAKE IN BED, ALERT/ORIENTED X 4, Pt ABLE TO MAKE NEEDS KNOWN. Pt EXPRESSED PAIN IN HIS ABDOMEN. IV ACCESS ON RIGHT WRIST #24G AND RIGHT FOREARM. PATIENT AMBULATORY WITH BRP. SAFETY MEASURES IN PLACE: CALL LIGHT WITHIN REACH, SIDE RAILS UP X 2, BED LOCKED IN LOW POSITION. WILL CONTINUE TO MONITOR PATIENT THROUGHOUT THE SHIFT
[2021-10-27] MEDS: LORAZEPAM INJ 2 MG/ML VIAL IV PRN ×3 (07:16→22:37)
[2021-10-27] MEDS: MEROPENEM 1 G in IV NS 0.9% 100 ML IV SCH ×2 (07:16→15:07)
[2021-10-27] MEDS: BLOOD SUGAR DIAGNOSTIC 1 EACH STRIP IN SCH ×4 (07:16→22:24)
[2021-10-27] MEDS: oxyCODONE/APAP (5/325 MG) 1 UDTAB TABLET PO PRN ×2 (07:26→18:01)
[2021-10-27 08:37] LABS: ALBUMIN 2.3 g/dL (3.4-5.0); BILIRUBIN,TOTAL 0.4 mg/dL (0.2-1.0); CALCIUM, SERUM 8.3 mg/dL (8.5-10.1); CREATININE 1.5 mg/dL (0.6-1.3); MAGNESIUM 2.1 mg/dL (1.8-2.4); PHOSPHORUS 2.7 mg/dL (2.5-4.9); POTASSIUM 3.9 mmol/L (3.5-5.1); TOTAL PROTEIN, SERUM 6.7 g/dL (6.4-8.2)
[2021-10-27] MEDS: GABAPENTIN 300 MG CAPSULE PO SCH ×3 (08:57→16:26)
[2021-10-27] MEDS: GLIMEPIRIDE 1 MG TABLET PO SCH ×2 (08:57→16:26)
[2021-10-27] MEDS: DOCUSATE SODIUM 100 MG CAPSULE PO SCH ×2 (08:57→16:28)
[2021-10-27] MEDS: FENOFIBRATE NANOCRYS (145 MG) 145 MG TABLET PO SCH (08:58)
[2021-10-27] MEDS: ENOXAPARIN SODIUM 40 MG/0.4 ML DISP.SYRIN SQ SCH (09:00)
[2021-10-27] MEDS: PANTOPRAZOLE 40 MG TABLET.DR PO SCH (09:02)
[2021-10-27 09:15] VITALS: BP 134/68
[2021-10-27] MEDS: KETOROLAC TROMETHAMINE INJ 30 MG/ML VIAL IV SCH ×2 (09:31→16:26)
--- NOTE | 2021-10-27 09:54 | NUR ---
RN MS NOTES: IV R IV ACCESS ON WRIST WAS NO LONGER INTACT AND WAS DISLODGED. R FOREARM IV WAS INFILTRATED AND REMOVED BY RN. NEW IV ACCESS WAS INSERTED ON R FOREARM AND IS PATENT, AND INTACT. WILL CONTINUE TO MONITOR.
[2021-10-27 11:14] LABS: BASOPHILS # (AUTO) 0.1 K/uL (0.0-0.2); BASOPHILS % (AUTO) 0.8 % (0.0-2.0); EOSINOPHILS % (AUTO) 1.5 % (0.0-6.0); HEMATOCRIT 31 % (39-51); HEMOGLOBIN 10.2 g/dL (13.5-17.5); LYMPHOCYTES # (AUTO) 0.6 K/uL (0.8-4.8); LYMPHOCYTES % (AUTO) 8.2 % (20.0-44.0); MEAN CORPUSCULAR HGB CONC 33 g/dl (31.0-36.0); MEAN CORPUSCULAR VOLUME 88 fL (80-96); MONOCYTES # (AUTO) 0.4 K/uL (0.1-1.30); MONOCYTES % (AUTO) 5.7 % (2.0-12.0); NEUTROPHILS # (AUTO) 6.5 K/uL (1.8-8.9); NEUTROPHILS % (AUTO) 83.8 % (43.0-81.0); PLATELET COUNT (AUTO) 241 K/uL (150-450); RED BLOOD CELL COUNT(AUTO) 3.54 MIL/uL (4.5-6.0); WHITE BLOOD COUNT (AUTO) 7.8 K/uL (4.3-11.0)
[2021-10-27] MEDS ORDERED: IV NS 0.9% 1,000 ML IV ONE (14:00)
--- NOTE | 2021-10-27 15:22 | NUR ---
SW spoke with pt. regarding psych consult. Pt. stated that he has not been evaluated by a psychiatrist. SW notified Dr. Dougherty.
[2021-10-27 15:57] VITALS: BP 134/74
--- NOTE | 2021-10-27 18:54 | NUR ---
RN CLOSING NOTES PATIENT IS ASLEEP IN BED AND AROUSES EASILY. A/O X4. NO S/S OF PAIN NOTED AT THIS TIME. NO SIGNS OF DISTRESS NOTICED. Pt IS ON ROOM AIR AND TOLERATING WELL. IV ACCESS ON R FOREARM, IT IS PATENT AND INTACT. SAFETY MEASURES ARE IN PLACE: BED IS LOCKED AND IN LOWEST POSITION, SIDE RAILS UP x2, CALL LIGHT AND BED SIDE TABLE ARE WITHIN REACH. WILL ENDORSE TO ONCOMING SHIFT.
[2021-10-27] MEDS: IV LR 1000 ML 1,000 ML IV PRN (19:25)
[2021-10-27 20:00] VITALS: BP 126/61
[2021-10-27 20:05] VITALS: BP 126/61
[2021-10-27 21:50] VITALS: BP 121/65
--- NOTE | 2021-10-27 22:35 | NUR ---
MS RN NOTE PATIENT'S BLOOD SUGAR IS 84 MG/DL. OFFERED SNACK TO THE PATIENT AND TOLERATING WELL.
--- NOTE | 2021-10-27 22:39 | NUR ---
MS RN NOTE: ANXIETY PATIENT VERBALIZED FEELING ANXIOUS AND REQUESTED TO TAKE ATIVAN AT THIS TIME. PRN ATIVAN 0.5 MG IV ADMINISTERED ORDERED. WILL CONTINUE TO MONITOR THE PATIENT FOR ANY CHANGES. NO ACUTE DISTRESS NOTED AT THIS TIME. PATIENT IS EATING SNACK AT THIS JOELLE. PATIENT'S BS WAS 84 MG/DL. TOLERATING SNACK, NO C/O PAIN VERBALIZED.
[2021-10-28] MEDS: MEROPENEM 1 G in IV NS 0.9% 100 ML IV SCH
[2021-10-28] MEDS: oxyCODONE/APAP (5/325 MG) 1 UDTAB TABLET PO PRN ×3 (03:10→15:32)
--- NOTE | 2021-10-28 03:13 | NUR ---
MS RN NOTE PATIENT C/O ABDOMINAL PAIN 05/03 AND REQUESTED TO TAKE PERCOCET. PRN PERCOCET 5/325 MG 1 TAB PO ADMINISTERED. WILL REASSESS FOR EFFECTIVENESS OF THE MEDICINE.
[2021-10-28] MEDS: LORAZEPAM INJ 2 MG/ML VIAL IV PRN ×2 (05:04→12:20)
--- NOTE | 2021-10-28 05:06 | NUR ---
MS RN NOTE: ANXIETY PATIENT VERBALIZED FEELING ANXIOUS AND REQUESTED TO TAKE ATIVAN. PRN ATIVAN 0.5 MG IV ADMINISTERED ORDERED. WILL CONTINUE TO MONITOR THE PATIENT FOR ANY CHANGES. NO ACUTE DISTRESS NOTED AT THIS TIME.
--- NOTE | 2021-10-28 06:13 | NUR ---
RN NOTE PATIENT REQUESTED TO INFORM AM RN TO RELAY HIS MESSAGE TO AM MD THAT PATIENT WOULD LIKE TO DISCUSS ABOUT HIS DIET WITH MD TODAY. ASSURED THE PATIENT THAT HIS MESSAGE WILL BE GIVEN TO THE AM RN TO FOLLOW UP WITH AM MD.
--- NOTE | 2021-10-28 06:55 | NUR ---
MS RN NOTE PATIENT'S BS LEVEL IS 74 MG/DL, OFFERED SNACK AND PATIENT IS TOLERATING IT WELL. WILL ENDORSE TO AM RN TO MONITOR THE PATIENT CLOSELY FOR ANY CHANGE OF CONDITION.
[2021-10-28] MEDS: BLOOD SUGAR DIAGNOSTIC 1 EACH STRIP IN SCH ×3 (07:21→16:51)
[2021-10-28] MEDS: PANTOPRAZOLE 40 MG TABLET.DR PO SCH (07:42)
[2021-10-28] MEDS: GLIMEPIRIDE 1 MG TABLET PO SCH ×2 (08:03→16:09)
[2021-10-28] MEDS: FENOFIBRATE NANOCRYS (145 MG) 145 MG TABLET PO SCH (08:03)
[2021-10-28] MEDS: DOCUSATE SODIUM 100 MG CAPSULE PO SCH ×2 (08:03→16:10)
[2021-10-28] MEDS: GABAPENTIN 300 MG CAPSULE PO SCH ×3 (08:03→16:09)
[2021-10-28] MEDS: KETOROLAC TROMETHAMINE INJ 30 MG/ML VIAL IV SCH ×2 (08:03→16:10)
[2021-10-28] MEDS: ENOXAPARIN SODIUM 40 MG/0.4 ML DISP.SYRIN SQ SCH (08:05)
--- NOTE | 2021-10-28 08:18 | NUR ---
RN NOTES [facility] SOLORIO, GAUGER CHIEF DELIVERY, AT BEDSIDE TO SEE PATIENT FOR PSYCH CONSULT. PATIENT RESTING IN BED AND EATING BREAKFAST. ABLE TO TAKE AM MEDS. SAFETY MEASURES IN PLACE. WILL CONTINUE TO MONITOR.
[2021-10-28 08:24] VITALS: BP 119/68
[2021-10-28 08:26] LABS: BASOPHILS % (AUTO) 0.6 % (0.0-2.0); EOSINOPHILS % (AUTO) 2.9 % (0.0-6.0); HEMATOCRIT 25 % (39-51); HEMOGLOBIN 8.3 g/dL (13.5-17.5); LYMPHOCYTES # (AUTO) 0.7 K/uL (0.8-4.8); LYMPHOCYTES % (AUTO) 12.4 % (20.0-44.0); MEAN CORPUSCULAR HGB CONC 33 g/dl (31.0-36.0); MEAN CORPUSCULAR VOLUME 87 fL (80-96); MONOCYTES # (AUTO) 0.4 K/uL (0.1-1.30); MONOCYTES % (AUTO) 6.2 % (2.0-12.0); NEUTROPHILS # (AUTO) 4.5 K/uL (1.8-8.9); NEUTROPHILS % (AUTO) 77.9 % (43.0-81.0); PLATELET COUNT (AUTO) 220 K/uL (150-450); RED BLOOD CELL COUNT(AUTO) 2.88 MIL/uL (4.5-6.0); WHITE BLOOD COUNT (AUTO) 5.8 K/uL (4.3-11.0)
[2021-10-28 08:54] LABS: CALCIUM, SERUM 8.1 mg/dL (8.5-10.1); CREATININE 1.3 mg/dL (0.6-1.3); POTASSIUM 3.8 mmol/L (3.5-5.1)
[2021-10-28] MEDS ORDERED: MAG HYDROX/AL HYDROX/SIMETH 30 ML UDC PO PRN (09:30)
[2021-10-28] MEDS: MAG HYDROX/AL HYDROX/SIMETH 30 ML UDC PO PRN (09:52)
[2021-10-28] MEDS: SIMETHICONE 80 MG TAB.CHEW PO PRN (09:52)
[2021-10-28] MEDS: INSULIN REGULAR, HUMAN 100 UNIT/ML 3 ML VIAL SQ PRN ×2 (12:00→16:51)
--- NOTE | 2021-10-28 13:00 | NUR ---
RN NOTES PATIENT SEEN BY DR. ABERNATHY TODAY W/ ORDERS NOTED.
[2021-10-28 15:31] VITALS: BP 135/8
[2021-10-28] MEDS ORDERED: FENO145T PO (16:15)
[2021-10-28] MEDS ORDERED: GABA300C PO (16:15)
[2021-10-28] MEDS ORDERED: TRAZ-252 PO (16:15)
[2021-10-28] MEDS ORDERED: GLIM1TAB PO (16:15)
[2021-10-28] MEDS ORDERED: DULO20CA PO (16:15)
--- NOTE | 2021-10-28 16:30 | NUR ---
RN NOTES RUTHY, HOME VISITOR, SPEAKING TO PATIENT.
[2021-10-28] MEDS ORDERED: DULOXETINE HCL 20 MG CAPSULE.DR PO SCH (17:00)
--- NOTE | 2021-10-28 18:25 | NUR ---
RN NOTES TAXI VOUCHER OBTAINED FROM ECONOMIC DEVELOPMENT DIRECTOR. CALLED [employer] W/ ETA OF 1HR, RATE OF $12. ECONOMIC DEVELOPMENT DIRECTOR MADE AWARE.
--- NOTE | 2021-10-28 18:47 | NUR ---
RN NOTES PATIENT DISCHARGED TO HOME TODAY. DISCHARGE INSTRUCTIONS AND EDUCATION PROVIDED TO PATIENT; DISCHARGE FORM AND BELONGINGS LIST FORM SIGNED BY PATIENT AND ALL BELONGINGS ACCOUNTED FOR. NO SKIN ISSUES NOTED. IV LINE AND NAME ARMBAND REMOVED. PATIENT IS AMBULATORY W/ STEADY GAIT AND WAS ACCOMPANIED TO THE LOBBY AND PICKED UP BY [employer]. PRES[facility] CONFIRMED VIA TXT MESSAGE TO PATIENT. CHARGE NURSE AND MD AWARE OF DISCHARGE.
[2021-10-28] MEDS ORDERED: TRAZODONE 50 MG TABLET PO SCH (22:00)
[2021-10-31] MEDS ORDERED: MORPHINE SULFATE INJ 2 MG/ML DISP.SYRIN ONE (08:23)
== END 2021-10-28 18:50 | disposition home or self-care (01) | DRG 720 ==
LOC: ER 10:39 → TELE-TD 15:34 → ICU 15:38 → MED 10-18 05:58
PROVIDERS: ADMIT Internal Medicine; ATTEND Student in an Organized Health Care Education/Training Program
DX: A41.9 Sepsis, unspecified organism (principal); N17.0 Acute kidney failure with tubular necrosis; J69.0 Pneumonitis due to inhalation of food and vomit; E43 Unspecified severe protein-calorie malnutrition; E10.10 Type 1 diabetes mellitus with ketoacidosis without coma; K85.90 Acute pancreatitis without necrosis or infection, unspecified; F33.2 Major depressive disorder, recurrent severe without psychotic features; J90 Pleural effusion, not elsewhere classified; E78.1 Pure hyperglyceridemia; K76.0 Fatty (change of) liver, not elsewhere classified; E87.5 Hyperkalemia; E66.9 Obesity, unspecified; Z20.822 Contact with and (suspected) exposure to COVID-19; Z68.32 Body mass index [BMI] 32.0-32.9, adult; E83.39 Other disorders of phosphorus metabolism; E87.6 Hypokalemia; E78.5 Hyperlipidemia, unspecified; I70.0 Atherosclerosis of aorta; K57.30 Diverticulosis of large intestine without perforation or abscess without bleeding; Z86.16 Personal history of COVID-19; J98.11 Atelectasis; G47.00 Insomnia, unspecified; F29 Unspecified psychosis not due to a substance or known physiological condition; K40.90 Unilateral inguinal hernia, without obstruction or gangrene, not specified as recurrent; K29.80 Duodenitis without bleeding; F43.10 Post-traumatic stress disorder, unspecified
CPT/HCPCS: 36415; 71045-TC; 76705-TC; 80048-TC; 80053-TC; 80061-TC; 80076-TC; 80202-TC; 81001; 82310-TC; 82962-TC; 83690-TC; 83735-TC; 83880; 84100-TC; 84439-TC; 84443-TC; 84478-TC; 85025-TC; 86140; 87040-TC; 87086-TC; 93307-TC; 97116-TC; 97530-TC; A9563; C9113; C9803; G0378; J0610; J1170; J1650; J1815; J1885; J2060; J2185; J2270; J2405; J2543; J2765; J3370; J3475; J3480; J3490; J7030; J7042; J7050; J7060; J7120; Q0164; Q9967

== ENCOUNTER 2021-10-30 15:45 | Inpatient (IN) | payer MEDICAID ==
[~2021-10-30] VITALS: Ht 188 cm; Wt 111.1 kg
[~2021-10-30 15:45] MED LIST: DULO20CA PO; FENO145T PO; GABA300C PO; GLIM1TAB PO; TRAZ-252 PO
[2021-10-30] MEDS ORDERED: ONDANSETRON HCL/PF 4 MG/2 ML VIAL ONE ×2 (16:49→23:45)
[2021-10-30] MEDS ORDERED: MORPHINE SULFATE INJ 4 MG/ML DISP.SYRIN ONE (16:49)
[2021-10-30] MEDS ORDERED: IV NS 0.9% 1,000 ML BAG IV ONE (17:00)
[2021-10-30] MEDS ORDERED: MORPHINE SULFATE INJ 2 MG/ML DISP.SYRIN IV ONE (17:00)
[2021-10-30] MEDS ORDERED: ONDANSETRON HCL/PF 4 MG/2 ML VIAL IVP ONE (17:00)
[2021-10-30 17:07] LABS: BASOPHILS % (AUTO) 0.5 % (0.0-2.0); EOSINOPHILS % (AUTO) 2.8 % (0.0-6.0); HEMATOCRIT 31 % (39-51); HEMOGLOBIN 10.2 g/dL (13.5-17.5); LYMPHOCYTES # (AUTO) 0.7 K/uL (0.8-4.8); LYMPHOCYTES % (AUTO) 11.1 % (20.0-44.0); MEAN CORPUSCULAR HGB CONC 33 g/dl (31.0-36.0); MEAN CORPUSCULAR VOLUME 88 fL (80-96); MONOCYTES # (AUTO) 0.3 K/uL (0.1-1.30); MONOCYTES % (AUTO) 4.2 % (2.0-12.0); NEUTROPHILS # (AUTO) 5.1 K/uL (1.8-8.9); NEUTROPHILS % (AUTO) 81.4 % (43.0-81.0); PLATELET COUNT (AUTO) 326 K/uL (150-450); RED BLOOD CELL COUNT(AUTO) 3.57 MIL/uL (4.5-6.0); WHITE BLOOD COUNT (AUTO) 6.2 K/uL (4.3-11.0)
[2021-10-30 17:20] LABS: CALCIUM, SERUM 8.6 mg/dL (8.5-10.1); CARBON DIOXIDE 26 mmol/L (21-32); CHLORIDE 104 mmol/L (98-107); CREATININE 1.3 mg/dL (0.6-1.3); GLUCOSE 73 mg/dL (74-106); SODIUM SERUM 139 mmol/L (136-145); UREA NITROGEN, BLOOD 7 mg/dL (7-18)
[2021-10-30 17:26] LABS: ALANINE AMINOTRANSFERASE 33 U/L (12-78); ALBUMIN 2.5 g/dL (3.4-5.0); ALKALINE PHOSPHATASE 77 U/L (46-116); ASPARTATE AMINOTRANSFERASE 27 U/L (15-37); BILIRUBIN,DIRECT 0.2 mg/dL (0.0-0.2); BILIRUBIN,TOTAL 0.5 mg/dL (0.2-1.0)
[2021-10-30 17:27] LABS: LIPASE 3161 U/L (73-393)
[2021-10-30] MEDS ORDERED: CT SWABBABLE VALVE TRANS SET 1 EA INFUS.SET MC ONE (19:37)
[2021-10-30] MEDS ORDERED: IOHEXOL-350 100 ML VIAL IV ONE (19:37)
[2021-10-30] MEDS ORDERED: IV NS 0.9% 250 ML IV ONE (19:38)
[2021-10-30] MEDS ORDERED: DEXTROSE 50%-WATER 50 ML DISP.SYRIN IV PRN (21:00)
[2021-10-30] MEDS ORDERED: LIDOCAINE 2% JEL UROJET 10 ML MM ONE (22:59)
[2021-10-30] MEDS: APIXABAN 5 MG TABLET PO SCH (23:00)
[2021-10-30] MEDS ORDERED: MORPHINE SULFATE INJ 2 MG/ML DISP.SYRIN ONE (23:45)
[2021-10-30] MEDS: MORPHINE SULFATE INJ 2 MG/ML DISP.SYRIN IV PRN (23:57)
[2021-10-30] MEDS: ONDANSETRON HCL/PF 4 MG/2 ML VIAL IVP PRN (23:57)
[2021-10-31] MEDS: IV D5/ 0.9% NACL 1,000 ML IV PRN ×2 (00:04→12:04)
[2021-10-31] MEDS: BLOOD SUGAR DIAGNOSTIC 1 EACH STRIP IN SCH ×4 (00:04→17:58)
[2021-10-31] MEDS ORDERED: APIXABAN 5 MG TABLET ONE (00:05)
[2021-10-31 01:01] LABS: BILIRUBIN,URINE SMALL (NEGATIVE); COLOR,URINE YELLOW (YELLOW); LEUKOCYTE ESTERASE ,URINE NEGATIVE (NEGATIVE); NITRITE, URINE NEGATIVE (NEGATIVE); PH,URINE 5.5 (5.0-8.0); PROTEIN,URINE NEGATIVE (NEGATIVE); UGLUCOSE NEGATIVE (NEGATIVE); UROBILINOGEN,URINE 0.2 EU/dL (0.2)
[2021-10-31] MEDS ORDERED: MORPHINE SULFATE INJ 2 MG/ML DISP.SYRIN ONE (03:48)
[2021-10-31] MEDS: MORPHINE SULFATE INJ 2 MG/ML DISP.SYRIN IV PRN ×5 (04:02→20:59)
[2021-10-31 05:12] LABS: BASOPHILS % (AUTO) 0.5 % (0.0-2.0); EOSINOPHILS % (AUTO) 3.6 % (0.0-6.0); HEMATOCRIT 24 % (39-51); HEMOGLOBIN 7.7 g/dL (13.5-17.5); LYMPHOCYTES # (AUTO) 0.9 K/uL (0.8-4.8); MEAN CORPUSCULAR HGB CONC 32 g/dl (31.0-36.0); MEAN CORPUSCULAR VOLUME 89 fL (80-96); MONOCYTES # (AUTO) 0.4 K/uL (0.1-1.30); MONOCYTES % (AUTO) 7.9 % (2.0-12.0); NEUTROPHILS # (AUTO) 3.3 K/uL (1.8-8.9); PLATELET COUNT (AUTO) 252 K/uL (150-450); RED BLOOD CELL COUNT(AUTO) 2.68 MIL/uL (4.5-6.0); WHITE BLOOD COUNT (AUTO) 4.8 K/uL (4.3-11.0)
[2021-10-31 05:28] LABS: CALCIUM, SERUM 7.8 mg/dL (8.5-10.1); CREATININE 1.2 mg/dL (0.6-1.3); PHOSPHORUS 5.1 mg/dL (2.5-4.9); POTASSIUM 4.1 mmol/L (3.5-5.1)
[2021-10-31] MEDS ORDERED: ONDANSETRON HCL/PF 4 MG/2 ML VIAL ONE (05:52)
[2021-10-31] MEDS: ONDANSETRON HCL/PF 4 MG/2 ML VIAL IVP PRN ×3 (05:57→17:47)
[2021-10-31] MEDS: APIXABAN 5 MG TABLET PO SCH ×2 (09:00→17:00)
[2021-10-31 16:06] VITALS: BP 128/67
[2021-10-31 20:00] VITALS: BP 135/71
[2021-10-31 20:04] VITALS: BP 135/71
[2021-11-01] MEDS: BLOOD SUGAR DIAGNOSTIC 1 EACH STRIP IN SCH ×4 (00:08→18:22)
[2021-11-01] MEDS: INSULIN REGULAR, HUMAN 100 UNIT/ML 3 ML VIAL SQ PRN ×2 (00:09→05:24)
[2021-11-01] MEDS: MORPHINE SULFATE INJ 2 MG/ML DISP.SYRIN IV PRN ×5 (01:13→21:35)
[2021-11-01] MEDS: ONDANSETRON HCL/PF 4 MG/2 ML VIAL IVP PRN ×4 (01:13→20:21)
[2021-11-01] MEDS: IV D5/ 0.9% NACL 1,000 ML IV PRN ×2 (01:19→16:52)
[2021-11-01 08:00] VITALS: BP 125/72
[2021-11-01] MEDS: APIXABAN 5 MG TABLET PO SCH ×2 (09:42→17:16)
[2021-11-01 10:17] LABS: ALBUMIN 2.2 g/dL (3.4-5.0); BILIRUBIN,TOTAL 0.3 mg/dL (0.2-1.0); CALCIUM, SERUM 7.9 mg/dL (8.5-10.1); CREATININE 1.2 mg/dL (0.6-1.3); MAGNESIUM 2.1 mg/dL (1.8-2.4); PHOSPHORUS 4.1 mg/dL (2.5-4.9); POTASSIUM 3.8 mmol/L (3.5-5.1); TOTAL PROTEIN, SERUM 6.2 g/dL (6.4-8.2)
[2021-11-01 11:23] LABS: BASOPHILS % (AUTO) 0.7 % (0.0-2.0); EOSINOPHILS % (AUTO) 3.5 % (0.0-6.0); HEMATOCRIT 26 % (39-51); HEMOGLOBIN 8.6 g/dL (13.5-17.5); LYMPHOCYTES # (AUTO) 0.7 K/uL (0.8-4.8); LYMPHOCYTES % (AUTO) 17.4 % (20.0-44.0); MEAN CORPUSCULAR HGB CONC 33 g/dl (31.0-36.0); MEAN CORPUSCULAR VOLUME 88 fL (80-96); MONOCYTES # (AUTO) 0.2 K/uL (0.1-1.30); MONOCYTES % (AUTO) 5.4 % (2.0-12.0); PLATELET COUNT (AUTO) 287 K/uL (150-450); RED BLOOD CELL COUNT(AUTO) 2.96 MIL/uL (4.5-6.0); WHITE BLOOD COUNT (AUTO) 4.1 K/uL (4.3-11.0)
[2021-11-01] MEDS: ACETAMINOPHEN 325 MG TABLET PO PRN ×2 (11:53→18:46)
[2021-11-01 16:00] VITALS: BP 133/70
[2021-11-01 20:00] VITALS: BP 128/72
[2021-11-02] MEDS: BLOOD SUGAR DIAGNOSTIC 1 EACH STRIP IN SCH ×5 (00:03→19:47)
[2021-11-02] MEDS: ONDANSETRON HCL/PF 4 MG/2 ML VIAL IVP PRN ×3 (04:59→17:55)
[2021-11-02] MEDS: MORPHINE SULFATE INJ 2 MG/ML DISP.SYRIN IV PRN ×2 (05:00→11:27)
[2021-11-02] MEDS: IV D5/ 0.9% NACL 1,000 ML IV PRN ×2 (07:17→21:07)
[2021-11-02 08:26] LABS: BASOPHILS % (AUTO) 0.9 % (0.0-2.0); EOSINOPHILS % (AUTO) 3.5 % (0.0-6.0); HEMATOCRIT 26 % (39-51); HEMOGLOBIN 8.4 g/dL (13.5-17.5); LYMPHOCYTES # (AUTO) 0.8 K/uL (0.8-4.8); LYMPHOCYTES % (AUTO) 14.7 % (20.0-44.0); MEAN CORPUSCULAR HGB CONC 33 g/dl (31.0-36.0); MEAN CORPUSCULAR VOLUME 88 fL (80-96); MONOCYTES # (AUTO) 0.3 K/uL (0.1-1.30); MONOCYTES % (AUTO) 5.4 % (2.0-12.0); NEUTROPHILS # (AUTO) 4.1 K/uL (1.8-8.9); NEUTROPHILS % (AUTO) 75.5 % (43.0-81.0); PLATELET COUNT (AUTO) 264 K/uL (150-450); RED BLOOD CELL COUNT(AUTO) 2.89 MIL/uL (4.5-6.0); WHITE BLOOD COUNT (AUTO) 5.4 K/uL (4.3-11.0)
[2021-11-02 08:39] VITALS: BP 134/76
[2021-11-02 08:45] LABS: ALBUMIN 2.1 g/dL (3.4-5.0); BILIRUBIN,TOTAL 0.3 mg/dL (0.2-1.0); CALCIUM, SERUM 7.8 mg/dL (8.5-10.1); CREATININE 1.2 mg/dL (0.6-1.3); PHOSPHORUS 4.2 mg/dL (2.5-4.9); TOTAL PROTEIN, SERUM 5.7 g/dL (6.4-8.2)
[2021-11-02] MEDS: APIXABAN 5 MG TABLET PO SCH ×2 (08:54→17:53)
[2021-11-02] MEDS: PANTOPRAZOLE 40 MG VIAL IV SCH (12:45)
[2021-11-02] MEDS: KETOROLAC TROMETHAMINE INJ 30 MG/ML VIAL IV PRN ×2 (14:18→23:28)
[2021-11-02 15:59] VITALS: BP 132/76
[2021-11-02] MEDS: LORAZEPAM INJ 2 MG/ML VIAL IV PRN (17:55)
[2021-11-02 20:00] VITALS: BP 136/78
[2021-11-03] MEDS: BLOOD SUGAR DIAGNOSTIC 1 EACH STRIP IN SCH ×4 (00:21→17:05)
[2021-11-03] MEDS: LORAZEPAM INJ 2 MG/ML VIAL IV PRN ×2 (00:22→22:41)
[2021-11-03] MEDS: ONDANSETRON HCL/PF 4 MG/2 ML VIAL IVP PRN ×3 (00:22→16:57)
[2021-11-03 07:57] LABS: BASOPHILS % (AUTO) 0.7 % (0.0-2.0); EOSINOPHILS % (AUTO) 2.5 % (0.0-6.0); HEMATOCRIT 26 % (39-51); HEMOGLOBIN 8.7 g/dL (13.5-17.5); LYMPHOCYTES # (AUTO) 0.8 K/uL (0.8-4.8); LYMPHOCYTES % (AUTO) 13.8 % (20.0-44.0); MEAN CORPUSCULAR HGB CONC 33 g/dl (31.0-36.0); MEAN CORPUSCULAR VOLUME 87 fL (80-96); MONOCYTES # (AUTO) 0.3 K/uL (0.1-1.30); MONOCYTES % (AUTO) 5.3 % (2.0-12.0); NEUTROPHILS # (AUTO) 4.3 K/uL (1.8-8.9); NEUTROPHILS % (AUTO) 77.7 % (43.0-81.0); PLATELET COUNT (AUTO) 265 K/uL (150-450); RED BLOOD CELL COUNT(AUTO) 3.02 MIL/uL (4.5-6.0); WHITE BLOOD COUNT (AUTO) 5.6 K/uL (4.3-11.0)
[2021-11-03 08:00] VITALS: BP 128/77
[2021-11-03] MEDS: KETOROLAC TROMETHAMINE INJ 30 MG/ML VIAL IV PRN ×2 (08:16→16:58)
[2021-11-03 08:58] LABS: BILIRUBIN,TOTAL 0.4 mg/dL (0.2-1.0); CALCIUM, SERUM 7.9 mg/dL (8.5-10.1); CREATININE 1.2 mg/dL (0.6-1.3); MAGNESIUM 1.7 mg/dL (1.8-2.4); PHOSPHORUS 3.8 mg/dL (2.5-4.9); POTASSIUM 3.6 mmol/L (3.5-5.1); TOTAL PROTEIN, SERUM 5.6 g/dL (6.4-8.2)
[2021-11-03] MEDS: APIXABAN 5 MG TABLET PO SCH ×2 (09:00→16:56)
[2021-11-03] MEDS: CALCIUM CARB 600MG /VIT D 1 EACH TABLET PO SCH (10:28)
[2021-11-03] MEDS: IV D5/ 0.9% NACL 1,000 ML IV PRN (11:34)
[2021-11-03] MEDS: PANTOPRAZOLE 40 MG VIAL IV SCH (12:36)
[2021-11-03] MEDS: MORPHINE SULFATE INJ 2 MG/ML DISP.SYRIN IV PRN ×2 (14:24→21:08)
[2021-11-03 16:00] VITALS: BP 133/76
[2021-11-03 20:00] VITALS: BP 132/75
[2021-11-03 20:03] VITALS: BP 132/75
[2021-11-04] MEDS: BLOOD SUGAR DIAGNOSTIC 1 EACH STRIP IN SCH ×4 (00:14→18:19)
[2021-11-04] MEDS: IV D5/ 0.9% NACL 1,000 ML IV PRN ×2 (01:06→15:15)
[2021-11-04] MEDS: ONDANSETRON HCL/PF 4 MG/2 ML VIAL IVP PRN ×2 (06:09→15:32)
[2021-11-04] MEDS: MORPHINE SULFATE INJ 2 MG/ML DISP.SYRIN IV PRN ×3 (06:21→20:19)
[2021-11-04 07:55] LABS: BASOPHILS % (AUTO) 0.9 % (0.0-2.0); EOSINOPHILS % (AUTO) 4.1 % (0.0-6.0); HEMATOCRIT 26 % (39-51); HEMOGLOBIN 8.7 g/dL (13.5-17.5); LYMPHOCYTES # (AUTO) 0.5 K/uL (0.8-4.8); LYMPHOCYTES % (AUTO) 12.1 % (20.0-44.0); MEAN CORPUSCULAR HGB CONC 33 g/dl (31.0-36.0); MEAN CORPUSCULAR VOLUME 87 fL (80-96); MONOCYTES # (AUTO) 0.2 K/uL (0.1-1.30); MONOCYTES % (AUTO) 5.5 % (2.0-12.0); NEUTROPHILS % (AUTO) 77.4 % (43.0-81.0); PLATELET COUNT (AUTO) 259 K/uL (150-450); RED BLOOD CELL COUNT(AUTO) 3.03 MIL/uL (4.5-6.0); WHITE BLOOD COUNT (AUTO) 3.9 K/uL (4.3-11.0)
[2021-11-04 08:00] VITALS: BP 143/76
[2021-11-04] MEDS: APIXABAN 5 MG TABLET PO SCH ×2 (09:00→17:00)
[2021-11-04 09:07] LABS: ALBUMIN 2.1 g/dL (3.4-5.0); BILIRUBIN,DIRECT 0.2 mg/dL (0.0-0.2); BILIRUBIN,TOTAL 0.5 mg/dL (0.2-1.0); CALCIUM, SERUM 7.8 mg/dL (8.5-10.1); CREATININE 1.2 mg/dL (0.6-1.3); POTASSIUM 3.5 mmol/L (3.5-5.1); TOTAL PROTEIN, SERUM 5.6 g/dL (6.4-8.2)
[2021-11-04] MEDS: CALCIUM CARB 600MG /VIT D 1 EACH TABLET PO SCH (09:24)
[2021-11-04] MEDS: KETOROLAC TROMETHAMINE INJ 30 MG/ML VIAL IV PRN (09:24)
[2021-11-04] MEDS: ACETAMINOPHEN 325 MG TABLET PO PRN ×2 (09:45→22:35)
[2021-11-04] MEDS: LORAZEPAM INJ 2 MG/ML VIAL IV PRN ×3 (09:51→18:15)
[2021-11-04] MEDS: PANTOPRAZOLE 40 MG VIAL IV SCH (12:36)
[2021-11-04 16:00] VITALS: BP 141/78
[2021-11-04 20:00] VITALS: BP 170/69
[2021-11-04] MEDS ORDERED: ZOLPIDEM TARTRATE 5 MG TABLET PO ONE (21:00)
[2021-11-04 23:21] VITALS: BP 112/69
[2021-11-05] MEDS: BLOOD SUGAR DIAGNOSTIC 1 EACH STRIP IN SCH ×4 (01:06→17:55)
[2021-11-05] MEDS: LORAZEPAM INJ 2 MG/ML VIAL IV PRN ×3 (01:13→16:58)
[2021-11-05] MEDS: IV D5/ 0.9% NACL 1,000 ML IV PRN (05:05)
[2021-11-05] MEDS: MORPHINE SULFATE INJ 2 MG/ML DISP.SYRIN IV PRN ×3 (05:05→23:09)
[2021-11-05 08:00] VITALS: BP 131/77
[2021-11-05] MEDS: CALCIUM CARB 600MG /VIT D 1 EACH TABLET PO SCH (09:00)
[2021-11-05] MEDS: APIXABAN 5 MG TABLET PO SCH ×2 (09:00→17:28)
[2021-11-05] MEDS: ONDANSETRON HCL/PF 4 MG/2 ML VIAL IVP PRN ×2 (09:13→23:09)
[2021-11-05] MEDS ORDERED: VANCOMYCIN 1 GM in IV D5W 250 ML IV SCH (10:00)
[2021-11-05] MEDS ORDERED: CEFEPIME 1 GM VIAL IM SCH (10:00)
[2021-11-05] MEDS: METRONIDAZOLE 500MG/ NS 100ML 500 MG in PREMIX 1 EA IV SCH ×2 (10:23→17:53)
[2021-11-05] MEDS ORDERED: NALOXONE PREFILLED SYRINGE 2 MG/2 ML SYRINGE IV ONE (11:30)
[2021-11-05] MEDS ORDERED: FENTANYL PF 250MCG/5ML AMPUL IV ONE (11:30)
[2021-11-05] MEDS ORDERED: MIDAZOLAM HCL 5MG/ML VIAL 25 MG/5 ML VIAL IV ONE (11:30)
[2021-11-05] MEDS: CEFEPIME 2 GM in IV D5W 100 ML IV SCH ×2 (11:42→20:39)
[2021-11-05] MEDS ORDERED: VANCOMYCIN 2 GM in IV D5W 500 ML IV ONE (13:00)
[2021-11-05] MEDS ORDERED: LIDOCAINE 1% INJ 50 ML MDV IJ ONE ×2 (13:15→13:17)
[2021-11-05] MEDS ORDERED: LIDOCAINE HCL/PF 1% 30 ML SDV ONE (13:18)
[2021-11-05] MEDS: PANTOPRAZOLE 40 MG VIAL IV SCH (15:36)
[2021-11-05 16:00] VITALS: BP 136/77
[2021-11-05] MEDS: ACETAMINOPHEN 325 MG TABLET PO PRN (17:07)
[2021-11-05 20:00] VITALS: BP 127/74
[2021-11-06 00:12] VITALS: BP 127/74
[2021-11-06] MEDS: LORAZEPAM INJ 2 MG/ML VIAL IV PRN ×4 (00:36→20:31)
[2021-11-06] MEDS: BLOOD SUGAR DIAGNOSTIC 1 EACH STRIP IN SCH ×4 (00:45→17:34)
[2021-11-06] MEDS: VANCOMYCIN 1.5 GM in IV D5W 500 ML IV SCH ×2 (01:24→13:35)
[2021-11-06] MEDS: METRONIDAZOLE 500MG/ NS 100ML 500 MG in PREMIX 1 EA IV SCH ×3 (03:01→23:03)
[2021-11-06] MEDS: MORPHINE SULFATE INJ 2 MG/ML DISP.SYRIN IV PRN ×5 (03:49→21:35)
[2021-11-06] MEDS: CEFEPIME 2 GM in IV D5W 100 ML IV SCH ×3 (05:03→20:57)
[2021-11-06] MEDS: IV D5/ 0.9% NACL 1,000 ML IV PRN (06:45)
[2021-11-06 08:00] VITALS: BP 138/79
[2021-11-06 08:10] LABS: CALCIUM, SERUM 8.6 mg/dL (8.5-10.1); CREATININE 1.1 mg/dL (0.6-1.3); POTASSIUM 3.4 mmol/L (3.5-5.1)
[2021-11-06] MEDS: CALCIUM CARB 600MG /VIT D 1 EACH TABLET PO SCH (08:27)
[2021-11-06] MEDS: APIXABAN 5 MG TABLET PO SCH ×2 (08:27→16:01)
[2021-11-06] MEDS: ACETAMINOPHEN 325 MG TABLET PO PRN ×2 (08:27→19:56)
[2021-11-06 09:00] LABS: ALBUMIN 2.1 g/dL (3.4-5.0); BILIRUBIN,DIRECT 0.2 mg/dL (0.0-0.2); BILIRUBIN,TOTAL 0.3 mg/dL (0.2-1.0); TOTAL PROTEIN, SERUM 5.4 g/dL (6.4-8.2)
[2021-11-06] MEDS: TRAZODONE 50 MG TABLET PO SCH ×2 (11:00→22:31)
[2021-11-06] MEDS ORDERED: FENTANYL PF 100MCG/2ML AMPUL IV ONE (11:15)
[2021-11-06] MEDS: PANTOPRAZOLE 40 MG VIAL IV SCH (12:34)
[2021-11-06] MEDS: POTASSIUM CL. PREMIX PERIPHER. 50 ML IV SCH ×2 (15:48→17:24)
[2021-11-06] MEDS: ONDANSETRON HCL/PF 4 MG/2 ML VIAL IVP PRN (15:58)
[2021-11-06 16:00] VITALS: BP 141/69
[2021-11-06 20:00] VITALS: BP_SYST 118; BP_DIAS 63; BP_DIAS 64
[2021-11-07] MEDS: BLOOD SUGAR DIAGNOSTIC 1 EACH STRIP IN SCH ×4 (00:03→18:40)
[2021-11-07] MEDS: MORPHINE SULFATE INJ 2 MG/ML DISP.SYRIN IV PRN ×5 (03:51→22:00)
[2021-11-07] MEDS: CEFEPIME 2 GM in IV D5W 100 ML IV SCH ×3 (04:18→20:37)
[2021-11-07] MEDS: METRONIDAZOLE 500MG/ NS 100ML 500 MG in PREMIX 1 EA IV SCH ×3 (06:51→23:53)
[2021-11-07] MEDS: IV D5/ 0.9% NACL 1,000 ML IV PRN (07:03)
[2021-11-07 07:32] LABS: ALBUMIN 2.1 g/dL (3.4-5.0); BILIRUBIN,TOTAL 0.3 mg/dL (0.2-1.0); CALCIUM, SERUM 8.2 mg/dL (8.5-10.1); POTASSIUM 3.3 mmol/L (3.5-5.1); TOTAL PROTEIN, SERUM 5.9 g/dL (6.4-8.2)
[2021-11-07] MEDS: PANTOPRAZOLE 40 MG TABLET.DR PO SCH (08:12)
[2021-11-07 08:16] LABS: BASOPHILS % (AUTO) 0.7 % (0.0-2.0); EOSINOPHILS % (AUTO) 2.5 % (0.0-6.0); HEMATOCRIT 26 % (39-51); HEMOGLOBIN 8.5 g/dL (13.5-17.5); LYMPHOCYTES # (AUTO) 0.4 K/uL (0.8-4.8); LYMPHOCYTES % (AUTO) 25.7 % (20.0-44.0); MEAN CORPUSCULAR HGB CONC 33 g/dl (31.0-36.0); MEAN CORPUSCULAR VOLUME 86 fL (80-96); MONOCYTES # (AUTO) 0.1 K/uL (0.1-1.30); MONOCYTES % (AUTO) 5.7 % (2.0-12.0); NEUTROPHILS % (AUTO) 65.4 % (43.0-81.0); PLATELET COUNT (AUTO) 169 K/uL (150-450); RED BLOOD CELL COUNT(AUTO) 3.02 MIL/uL (4.5-6.0)
[2021-11-07 08:23] LABS: WHITE BLOOD COUNT (AUTO) 1.5 K/uL (4.3-11.0)
[2021-11-07] MEDS: APIXABAN 5 MG TABLET PO SCH ×2 (09:00→17:00)
[2021-11-07] MEDS: CALCIUM CARB 600MG /VIT D 1 EACH TABLET PO SCH (09:35)
[2021-11-07] MEDS: LORAZEPAM INJ 2 MG/ML VIAL IV PRN ×2 (09:36→20:47)
[2021-11-07] MEDS: POTASSIUM CL. PREMIX PERIPHER. 50 ML IV SCH ×4 (10:11→11:38)
[2021-11-07] MEDS: ALBUMIN 25% 25 GM in PREMIX 1 EA IV SCH ×2 (10:27→21:34)
[2021-11-07 10:30] VITALS: BP 128/71
[2021-11-07] MEDS: ONDANSETRON HCL/PF 4 MG/2 ML VIAL IVP PRN ×2 (12:52→21:52)
[2021-11-07] MEDS: ACETAMINOPHEN 325 MG TABLET PO PRN (16:54)
[2021-11-07 20:00] VITALS: BP 141/80
[2021-11-07 21:05] LABS: BAND % (MANUAL) 1 % (0.0-5.0); LYMPHOCYTES % (MANUAL) 27 % (16-48); MONOCYTES % (MANUAL) 6 % (0-11.0); NEUTROPHILS % (MANUAL) 66 (42-76)
[2021-11-07] MEDS: TRAZODONE 50 MG TABLET PO SCH (21:53)
[2021-11-08] MEDS: INSULIN REGULAR, HUMAN 100 UNIT/ML 3 ML VIAL SQ PRN (00:09)
[2021-11-08] MEDS: BLOOD SUGAR DIAGNOSTIC 1 EACH STRIP IN SCH ×4 (00:09→18:06)
[2021-11-08] MEDS: CEFEPIME 2 GM in IV D5W 100 ML IV SCH ×3 (04:27→20:10)
[2021-11-08] MEDS: ONDANSETRON HCL/PF 4 MG/2 ML VIAL IVP PRN ×3 (04:34→20:10)
[2021-11-08] MEDS: MORPHINE SULFATE INJ 2 MG/ML DISP.SYRIN IV PRN ×4 (04:43→18:14)
[2021-11-08] MEDS: LORAZEPAM INJ 2 MG/ML VIAL IV PRN ×3 (05:42→20:10)
[2021-11-08] MEDS: METRONIDAZOLE 500MG/ NS 100ML 500 MG in PREMIX 1 EA IV SCH ×3 (06:27→23:37)
[2021-11-08 07:14] LABS: BASOPHILS % (AUTO) 0.5 % (0.0-2.0); EOSINOPHILS % (AUTO) 4.1 % (0.0-6.0); HEMATOCRIT 25 % (39-51); HEMOGLOBIN 8.1 g/dL (13.5-17.5); LYMPHOCYTES # (AUTO) 0.4 K/uL (0.8-4.8); LYMPHOCYTES % (AUTO) 25.9 % (20.0-44.0); MEAN CORPUSCULAR HGB CONC 33 g/dl (31.0-36.0); MEAN CORPUSCULAR VOLUME 86 fL (80-96); MONOCYTES # (AUTO) 0.1 K/uL (0.1-1.30); NEUTROPHILS % (AUTO) 65.5 % (43.0-81.0); PLATELET COUNT (AUTO) 155 K/uL (150-450); RED BLOOD CELL COUNT(AUTO) 2.87 MIL/uL (4.5-6.0)
[2021-11-08] MEDS: PANTOPRAZOLE 40 MG TABLET.DR PO SCH (07:30)
[2021-11-08] MEDS: APIXABAN 5 MG TABLET PO SCH ×2 (07:42→12:22)
[2021-11-08 07:49] LABS: ALBUMIN 2.6 g/dL (3.4-5.0); BILIRUBIN,TOTAL 0.4 mg/dL (0.2-1.0); CALCIUM, SERUM 8.3 mg/dL (8.5-10.1); POTASSIUM 3.5 mmol/L (3.5-5.1); TOTAL PROTEIN, SERUM 6.2 g/dL (6.4-8.2)
[2021-11-08 08:00] VITALS: BP 141/87
[2021-11-08 08:00] LABS: WHITE BLOOD COUNT (AUTO) 1.5 K/uL (4.3-11.0)
[2021-11-08 08:07] LABS: CARBOHYDRATE AG 19-9 5 U/mL (0-35)
[2021-11-08] MEDS: CALCIUM CARB 600MG /VIT D 1 EACH TABLET PO SCH (08:30)
[2021-11-08 09:05] LABS: BAND % (MANUAL) 2 % (0.0-5.0); LYMPHOCYTES % (MANUAL) 26 % (16-48); MONOCYTES % (MANUAL) 5 % (0-11.0); NEUTROPHILS % (MANUAL) 67 (42-76)
[2021-11-08 10:51] LABS: BASOPHILS % (AUTO) 0.5 % (0.0-2.0); EOSINOPHILS % (AUTO) 2.9 % (0.0-6.0); HEMATOCRIT 26 % (39-51); HEMOGLOBIN 8.4 g/dL (13.5-17.5); LYMPHOCYTES # (AUTO) 0.3 K/uL (0.8-4.8); LYMPHOCYTES % (AUTO) 21.7 % (20.0-44.0); MEAN CORPUSCULAR HGB CONC 33 g/dl (31.0-36.0); MEAN CORPUSCULAR VOLUME 85 fL (80-96); MONOCYTES # (AUTO) 0.1 K/uL (0.1-1.30); MONOCYTES % (AUTO) 4.7 % (2.0-12.0); NEUTROPHILS % (AUTO) 70.2 % (43.0-81.0); PLATELET COUNT (AUTO) 151 K/uL (150-450); RED BLOOD CELL COUNT(AUTO) 3.01 MIL/uL (4.5-6.0)
[2021-11-08 10:54] LABS: WHITE BLOOD COUNT (AUTO) 1.4 K/uL (4.3-11.0)
[2021-11-08 11:19] LABS: LYMPHOCYTES % (MANUAL) 27 % (16-48); MONOCYTES % (MANUAL) 8 % (0-11.0); NEUTROPHILS % (MANUAL) 65 (42-76)
[2021-11-08] MEDS ORDERED: IOHEXOL-300 100 ML VIAL IV ONE (15:18)
[2021-11-08] MEDS ORDERED: IV NS 0.9% 250 ML IV ONE (15:18)
[2021-11-08 16:00] VITALS: BP 147/72
[2021-11-08] MEDS: IV D5/ 0.9% NACL 1,000 ML IV PRN (16:16)
[2021-11-08 20:00] VITALS: BP 133/76
[2021-11-08] MEDS: TRAZODONE 50 MG TABLET PO SCH (21:09)
[2021-11-09] MEDS: INSULIN REGULAR, HUMAN 100 UNIT/ML 3 ML VIAL SQ PRN ×2 (01:07→06:58)
[2021-11-09] MEDS: MORPHINE SULFATE INJ 2 MG/ML DISP.SYRIN IV PRN ×5 (02:55→21:31)
[2021-11-09] MEDS: ACETAMINOPHEN 325 MG TABLET PO PRN ×2 (02:55→15:52)
[2021-11-09] MEDS: CEFEPIME 2 GM in IV D5W 100 ML IV SCH (03:03)
[2021-11-09] MEDS: METRONIDAZOLE 500MG/ NS 100ML 500 MG in PREMIX 1 EA IV SCH (06:03)
[2021-11-09] MEDS: ONDANSETRON HCL/PF 4 MG/2 ML VIAL IVP PRN ×3 (06:10→21:31)
[2021-11-09] MEDS: LORAZEPAM INJ 2 MG/ML VIAL IV PRN ×2 (06:10→14:08)
[2021-11-09] MEDS: BLOOD SUGAR DIAGNOSTIC 1 EACH STRIP IN SCH ×4 (06:39→17:21)
[2021-11-09] MEDS: PANTOPRAZOLE 40 MG TABLET.DR PO SCH (06:39)
[2021-11-09 06:43] LABS: BASOPHILS % (AUTO) 0.6 % (0.0-2.0); HEMATOCRIT 26 % (39-51); HEMOGLOBIN 8.4 g/dL (13.5-17.5); LYMPHOCYTES # (AUTO) 0.4 K/uL (0.8-4.8); LYMPHOCYTES % (AUTO) 34.8 % (20.0-44.0); MEAN CORPUSCULAR HGB CONC 33 g/dl (31.0-36.0); MEAN CORPUSCULAR VOLUME 85 fL (80-96); MONOCYTES # (AUTO) 0.1 K/uL (0.1-1.30); MONOCYTES % (AUTO) 6.1 % (2.0-12.0); NEUTROPHILS # (AUTO) 0.6 K/uL (1.8-8.9); NEUTROPHILS % (AUTO) 56.5 % (43.0-81.0); PLATELET COUNT (AUTO) 130 K/uL (150-450); RED BLOOD CELL COUNT(AUTO) 3.03 MIL/uL (4.5-6.0)
[2021-11-09 06:44] LABS: WHITE BLOOD COUNT (AUTO) 1.1 K/uL (4.3-11.0)
[2021-11-09 07:49] LABS: ALBUMIN 2.5 g/dL (3.4-5.0); BILIRUBIN,TOTAL 0.3 mg/dL (0.2-1.0); CALCIUM, SERUM 8.4 mg/dL (8.5-10.1); POTASSIUM 3.3 mmol/L (3.5-5.1); TOTAL PROTEIN, SERUM 6.1 g/dL (6.4-8.2)
[2021-11-09 08:00] VITALS: BP 140/79
[2021-11-09] MEDS ORDERED: POTASSIUM CHLORIDE 20 MEQ TAB.PRT.SR PO ONE (09:00)
[2021-11-09 09:21] LABS: EOSINOPHILS % (MANUAL) 2 % (0-4); LYMPHOCYTES % (MANUAL) 36 % (16-48); MONOCYTES % (MANUAL) 4 % (0-11.0); NEUTROPHILS % (MANUAL) 58 (42-76)
[2021-11-09] MEDS: MEROPENEM 1 G in IV NS 0.9% 100 ML IV SCH ×3 (09:25→21:30)
[2021-11-09] MEDS: CALCIUM CARB 600MG /VIT D 1 EACH TABLET PO SCH (09:25)
[2021-11-09] MEDS: APIXABAN 5 MG TABLET PO SCH ×2 (09:26→17:00)
[2021-11-09] MEDS ORDERED: SIMETHICONE 80 MG TAB.CHEW PO PRN (11:00)
[2021-11-09] MEDS ORDERED: LACTULOSE 10 G/15 ML UDC (PYXIS) PO ONE (11:00)
[2021-11-09] MEDS: POLYETHYLENE GLYCOL 3350 17 GM POWD.PACK PO SCH (11:15)
[2021-11-09] MEDS: DOCUSATE SODIUM 100 MG CAPSULE PO SCH ×2 (11:15→17:00)
[2021-11-09] MEDS: MICAFUNGIN SODIUM 100 MG in IV NS 0.9% 100 ML IV SCH (11:16)
[2021-11-09] MEDS: METOCLOPRAMIDE HCL 10 MG TABLET PO SCH ×2 (12:31→16:59)
[2021-11-09 12:45] LABS: D-DIMER 10.85 mg/L(FEU (0.17-0.50)
[2021-11-09] MEDS: IV D5/ 0.9% NACL 1,000 ML IV PRN (14:35)
[2021-11-09] MEDS ORDERED: TBO-FILGRASTIM 480 MCG/0.8 ML ML SQ SCH (15:00)
[2021-11-09 16:00] VITALS: BP 151/78
[2021-11-09 20:00] VITALS: BP 134/73
[2021-11-09] MEDS: TRAZODONE 50 MG TABLET PO SCH (21:31)
[2021-11-10] MEDS: BLOOD SUGAR DIAGNOSTIC 1 EACH STRIP IN SCH ×5 (00:14→23:56)
[2021-11-10] MEDS: INSULIN REGULAR, HUMAN 100 UNIT/ML 3 ML VIAL SQ PRN ×2 (00:14→06:45)
[2021-11-10] MEDS: MORPHINE SULFATE INJ 2 MG/ML DISP.SYRIN IV PRN ×6 (01:48→23:51)
[2021-11-10] MEDS: LORAZEPAM INJ 2 MG/ML VIAL IV PRN ×2 (01:59→12:22)
[2021-11-10] MEDS: ONDANSETRON HCL/PF 4 MG/2 ML VIAL IVP PRN ×3 (06:00→18:58)
[2021-11-10] MEDS: IV D5/ 0.9% NACL 1,000 ML IV PRN (06:01)
[2021-11-10] MEDS: MEROPENEM 1 G in IV NS 0.9% 100 ML IV SCH ×3 (06:02→20:27)
[2021-11-10] MEDS: PANTOPRAZOLE 40 MG TABLET.DR PO SCH (06:42)
[2021-11-10 07:20] LABS: BASOPHILS % (AUTO) 0.1 % (0.0-2.0); EOSINOPHILS % (AUTO) 0.1 % (0.0-6.0); HEMATOCRIT 26 % (39-51); HEMOGLOBIN 8.7 g/dL (13.5-17.5); LYMPHOCYTES # (AUTO) 0.5 K/uL (0.8-4.8); LYMPHOCYTES % (AUTO) 6.4 % (20.0-44.0); MEAN CORPUSCULAR HGB CONC 33 g/dl (31.0-36.0); MEAN CORPUSCULAR VOLUME 84 fL (80-96); MONOCYTES # (AUTO) 0.2 K/uL (0.1-1.30); MONOCYTES % (AUTO) 2.4 % (2.0-12.0); NEUTROPHILS # (AUTO) 6.6 K/uL (1.8-8.9); PLATELET COUNT (AUTO) 124 K/uL (150-450); RED BLOOD CELL COUNT(AUTO) 3.13 MIL/uL (4.5-6.0); WHITE BLOOD COUNT (AUTO) 7.2 K/uL (4.3-11.0)
[2021-11-10 08:00] VITALS: BP 136/73
[2021-11-10 08:06] LABS: IMMUNOGLOBULIN A, SERUM 375 mg/dL (90-386); IMMUNOGLOBULIN G, SERUM 825 mg/dL (603-1613); IMMUNOGLOBULIN M, SERUM 25 mg/dL (20-172)
[2021-11-10] MEDS: CALCIUM CARB 600MG /VIT D 1 EACH TABLET PO SCH (08:36)
[2021-11-10] MEDS: METOCLOPRAMIDE HCL 10 MG TABLET PO SCH ×3 (08:36→17:22)
[2021-11-10 08:47] LABS: ALBUMIN 2.5 g/dL (3.4-5.0); BILIRUBIN,TOTAL 0.4 mg/dL (0.2-1.0); CALCIUM, SERUM 8.2 mg/dL (8.5-10.1); CREATININE 1.1 mg/dL (0.6-1.3); POTASSIUM 3.7 mmol/L (3.5-5.1); TOTAL PROTEIN, SERUM 6.4 g/dL (6.4-8.2)
[2021-11-10] MEDS: POLYETHYLENE GLYCOL 3350 17 GM POWD.PACK PO SCH (08:47)
[2021-11-10] MEDS: DOCUSATE SODIUM 100 MG CAPSULE PO SCH (08:47)
[2021-11-10 09:56] LABS: D-DIMER 8.27 mg/L(FEU (0.17-0.50)
[2021-11-10] MEDS: MICAFUNGIN SODIUM 100 MG in IV NS 0.9% 100 ML IV SCH (10:19)
[2021-11-10] MEDS: APIXABAN 5 MG TABLET PO SCH ×2 (10:38→17:23)
[2021-11-10 11:07] LABS: *ANA ANTI-CENTROMERE B AB <0.2 AI (0.0-0.9); *ANA ANTI-DNA(DS) AB, QN <1 IU/mL (0-9); *ANA ANTI-JO-1 <0.2 AI (0.0-0.9); *ANA ANTICHROMATIN ANTIBODY <0.2 AI (0.0-0.9); *ANA RNP ANTIBODIES 0.2 AI (0.0-0.9); *ANA SJOGREN'S ANTI-SS-A <0.2 AI (0.0-0.9); *ANA SJOGREN'S ANTI-SS-B <0.2 AI (0.0-0.9); *ANAANTI-SCLERODERMA-70 AB <0.2 AI (0.0-0.9); *ANASMITH AB <0.2 AI (0.0-0.9)
[2021-11-10] MEDS ORDERED: DOCUSATE SODIUM 100 MG CAPSULE PO PRN (12:00)
[2021-11-10 14:07] LABS: *SPE A/G RATIO 0.9 (0.7-1.7); *SPE ALPHA-1-GLOBULIN 0.4 g/dL (0.0-0.4); *SPE ALPHA-2-GLOBULIN 0.9 g/dL (0.4-1.0); *SPE M-SPIKE Not Observed g/dL (Not Observed)
[2021-11-10 16:00] VITALS: BP 142/73
[2021-11-10] MEDS ORDERED: MAG HYDROX/AL HYDROX/SIMETH 30 ML UDC PO PRN (17:00)
[2021-11-10 21:20] VITALS: BP 132/70
[2021-11-10] MEDS: ACETAMINOPHEN 325 MG TABLET PO PRN (21:30)
[2021-11-10 22:00] VITALS: BP 130/72
[2021-11-10] MEDS: TRAZODONE 50 MG TABLET PO SCH (22:14)
[2021-11-10 22:30] VITALS: BP 134/76
[2021-11-10 23:00] VITALS: BP 130/74
[2021-11-11] MEDS: MEROPENEM 1 G in IV NS 0.9% 100 ML IV SCH ×3 (04:24→20:33)
[2021-11-11] MEDS: BLOOD SUGAR DIAGNOSTIC 1 EACH STRIP IN SCH ×4 (05:19→23:11)
[2021-11-11] MEDS: ONDANSETRON HCL/PF 4 MG/2 ML VIAL IVP PRN ×2 (05:20→15:25)
[2021-11-11] MEDS: MORPHINE SULFATE INJ 2 MG/ML DISP.SYRIN IV PRN ×4 (05:52→20:35)
[2021-11-11 07:50] LABS: BASOPHILS % (AUTO) 0.1 % (0.0-2.0); EOSINOPHILS % (AUTO) 0.3 % (0.0-6.0); HEMATOCRIT 26 % (39-51); HEMOGLOBIN 8.9 g/dL (13.5-17.5); LYMPHOCYTES # (AUTO) 0.4 K/uL (0.8-4.8); LYMPHOCYTES % (AUTO) 6.9 % (20.0-44.0); MEAN CORPUSCULAR HGB CONC 34 g/dl (31.0-36.0); MEAN CORPUSCULAR VOLUME 84 fL (80-96); MONOCYTES # (AUTO) 0.2 K/uL (0.1-1.30); MONOCYTES % (AUTO) 2.6 % (2.0-12.0); NEUTROPHILS # (AUTO) 5.2 K/uL (1.8-8.9); NEUTROPHILS % (AUTO) 90.1 % (43.0-81.0); PLATELET COUNT (AUTO) 137 K/uL (150-450); RED BLOOD CELL COUNT(AUTO) 3.12 MIL/uL (4.5-6.0); WHITE BLOOD COUNT (AUTO) 5.8 K/uL (4.3-11.0)
[2021-11-11 08:00] VITALS: BP 133/74
[2021-11-11 08:25] LABS: ALBUMIN 2.6 g/dL (3.4-5.0); BILIRUBIN,TOTAL 0.4 mg/dL (0.2-1.0); CALCIUM, SERUM 8.5 mg/dL (8.5-10.1); CREATININE 0.9 mg/dL (0.6-1.3); POTASSIUM 3.6 mmol/L (3.5-5.1); TOTAL PROTEIN, SERUM 6.5 g/dL (6.4-8.2)
[2021-11-11] MEDS: PANTOPRAZOLE 40 MG TABLET.DR PO SCH (08:53)
[2021-11-11] MEDS: ACETAMINOPHEN 325 MG TABLET PO PRN ×2 (08:53→20:35)
[2021-11-11] MEDS: CALCIUM CARB 600MG /VIT D 1 EACH TABLET PO SCH (08:53)
[2021-11-11] MEDS: METOCLOPRAMIDE HCL 10 MG TABLET PO SCH ×3 (08:53→17:13)
[2021-11-11] MEDS: POLYETHYLENE GLYCOL 3350 17 GM POWD.PACK PO SCH (08:53)
[2021-11-11] MEDS: APIXABAN 5 MG TABLET PO SCH ×2 (08:57→17:12)
[2021-11-11 09:05] LABS: D-DIMER 5.13 mg/L(FEU (0.17-0.50)
[2021-11-11] MEDS: MICAFUNGIN SODIUM 100 MG in IV NS 0.9% 100 ML IV SCH (10:26)
[2021-11-11 16:00] VITALS: BP 149/77
[2021-11-11 20:00] VITALS: BP 152/78
[2021-11-11] MEDS: TRAZODONE 50 MG TABLET PO SCH (21:04)
[2021-11-11] MEDS: LORAZEPAM INJ 2 MG/ML VIAL IV PRN (22:58)
[2021-11-12] MEDS: MORPHINE SULFATE INJ 2 MG/ML DISP.SYRIN IV PRN ×5 (02:35→20:04)
[2021-11-12] MEDS: MEROPENEM 1 G in IV NS 0.9% 100 ML IV SCH ×3 (05:05→22:01)
[2021-11-12] MEDS: BLOOD SUGAR DIAGNOSTIC 1 EACH STRIP IN SCH ×3 (05:48→17:56)
[2021-11-12] MEDS: LORAZEPAM INJ 2 MG/ML VIAL IV PRN ×2 (05:58→13:02)
[2021-11-12 07:32] LABS: BASOPHILS % (AUTO) 0.3 % (0.0-2.0); EOSINOPHILS % (AUTO) 0.2 % (0.0-6.0); HEMATOCRIT 27 % (39-51); LYMPHOCYTES # (AUTO) 0.5 K/uL (0.8-4.8); LYMPHOCYTES % (AUTO) 15.6 % (20.0-44.0); MEAN CORPUSCULAR HGB CONC 33 g/dl (31.0-36.0); MEAN CORPUSCULAR VOLUME 84 fL (80-96); MONOCYTES # (AUTO) 0.2 K/uL (0.1-1.30); MONOCYTES % (AUTO) 5.3 % (2.0-12.0); NEUTROPHILS # (AUTO) 2.5 K/uL (1.8-8.9); NEUTROPHILS % (AUTO) 78.6 % (43.0-81.0); PLATELET COUNT (AUTO) 137 K/uL (150-450); RED BLOOD CELL COUNT(AUTO) 3.22 MIL/uL (4.5-6.0); WHITE BLOOD COUNT (AUTO) 3.1 K/uL (4.3-11.0)
[2021-11-12 08:01] LABS: ALBUMIN 2.8 g/dL (3.4-5.0); BILIRUBIN,TOTAL 0.4 mg/dL (0.2-1.0); CALCIUM, SERUM 8.5 mg/dL (8.5-10.1); CREATININE 0.9 mg/dL (0.6-1.3); MAGNESIUM 1.7 mg/dL (1.8-2.4); PHOSPHORUS 2.6 mg/dL (2.5-4.9); POTASSIUM 3.4 mmol/L (3.5-5.1); TOTAL PROTEIN, SERUM 6.8 g/dL (6.4-8.2)
[2021-11-12] MEDS: PANTOPRAZOLE 40 MG TABLET.DR PO SCH (08:26)
[2021-11-12] MEDS: DRONABINOL (2.5 MG) 2.5 MG CAPSULE PO SCH ×2 (09:00→17:01)
[2021-11-12] MEDS: CALCIUM CARB 600MG /VIT D 1 EACH TABLET PO SCH (09:00)
[2021-11-12] MEDS: METOCLOPRAMIDE HCL 10 MG TABLET PO SCH ×3 (09:00→17:01)
[2021-11-12] MEDS: POLYETHYLENE GLYCOL 3350 17 GM POWD.PACK PO SCH (09:47)
[2021-11-12] MEDS: APIXABAN 5 MG TABLET PO SCH ×2 (09:54→17:06)
[2021-11-12] MEDS: MICAFUNGIN SODIUM 100 MG in IV NS 0.9% 100 ML IV SCH (10:00)
[2021-11-12] MEDS: INSULIN REGULAR, HUMAN 100 UNIT/ML 3 ML VIAL SQ PRN ×2 (12:13→17:56)
[2021-11-12] MEDS: ACETAMINOPHEN 325 MG TABLET PO PRN (17:09)
[2021-11-12 20:00] VITALS: BP 126/75
[2021-11-12] MEDS: ONDANSETRON HCL/PF 4 MG/2 ML VIAL IVP PRN (20:03)
[2021-11-12] MEDS: TRAZODONE 50 MG TABLET PO SCH (22:01)
[2021-11-13] MEDS: INSULIN REGULAR, HUMAN 100 UNIT/ML 3 ML VIAL SQ PRN ×4 (00:36→23:52)
[2021-11-13] MEDS: BLOOD SUGAR DIAGNOSTIC 1 EACH STRIP IN SCH ×5 (00:36→23:53)
[2021-11-13] MEDS: ONDANSETRON HCL/PF 4 MG/2 ML VIAL IVP PRN ×2 (02:15→09:23)
[2021-11-13] MEDS: MORPHINE SULFATE INJ 2 MG/ML DISP.SYRIN IV PRN ×5 (02:15→23:34)
[2021-11-13] MEDS: LORAZEPAM INJ 2 MG/ML VIAL IV PRN ×3 (05:04→22:16)
[2021-11-13] MEDS: MEROPENEM 1 G in IV NS 0.9% 100 ML IV SCH ×3 (05:05→22:15)
[2021-11-13 07:32] LABS: BASOPHILS % (AUTO) 0.3 % (0.0-2.0); EOSINOPHILS % (AUTO) 0.2 % (0.0-6.0); HEMATOCRIT 26 % (39-51); HEMOGLOBIN 8.5 g/dL (13.5-17.5); LYMPHOCYTES # (AUTO) 0.6 K/uL (0.8-4.8); LYMPHOCYTES % (AUTO) 25.8 % (20.0-44.0); MEAN CORPUSCULAR HGB CONC 33 g/dl (31.0-36.0); MEAN CORPUSCULAR VOLUME 84 fL (80-96); MONOCYTES # (AUTO) 0.2 K/uL (0.1-1.30); MONOCYTES % (AUTO) 8.5 % (2.0-12.0); NEUTROPHILS # (AUTO) 1.4 K/uL (1.8-8.9); NEUTROPHILS % (AUTO) 65.2 % (43.0-81.0); PLATELET COUNT (AUTO) 141 K/uL (150-450); RED BLOOD CELL COUNT(AUTO) 3.09 MIL/uL (4.5-6.0); WHITE BLOOD COUNT (AUTO) 2.2 K/uL (4.3-11.0)
[2021-11-13 08:00] VITALS: BP 124/88
[2021-11-13 08:28] LABS: ALBUMIN 2.5 g/dL (3.4-5.0); BILIRUBIN,TOTAL 0.5 mg/dL (0.2-1.0); CALCIUM, SERUM 8.2 mg/dL (8.5-10.1); CREATININE 0.9 mg/dL (0.6-1.3); MAGNESIUM 1.7 mg/dL (1.8-2.4); PHOSPHORUS 3.1 mg/dL (2.5-4.9); POTASSIUM 4.3 mmol/L (3.5-5.1); TOTAL PROTEIN, SERUM 6.3 g/dL (6.4-8.2)
[2021-11-13] MEDS: METOCLOPRAMIDE HCL 10 MG TABLET PO SCH ×3 (09:00→16:51)
[2021-11-13] MEDS: DEXAMETHASONE SOD PHOSPHATE 4 MG/ML VIAL IV SCH ×2 (09:23→16:51)
[2021-11-13] MEDS: POLYETHYLENE GLYCOL 3350 17 GM POWD.PACK PO SCH (09:24)
[2021-11-13] MEDS: PANTOPRAZOLE 40 MG TABLET.DR PO SCH (09:24)
[2021-11-13] MEDS: DRONABINOL (2.5 MG) 2.5 MG CAPSULE PO SCH ×2 (09:24→16:51)
[2021-11-13] MEDS: APIXABAN 5 MG TABLET PO SCH ×2 (09:35→16:53)
[2021-11-13] MEDS ORDERED: BENZONATATE 100 MG CAPSULE PO PRN (10:30)
[2021-11-13] MEDS: MICAFUNGIN SODIUM 100 MG in IV NS 0.9% 100 ML IV SCH ×2 (11:06→11:11)
[2021-11-13] MEDS: Magnesium 1GM/D5W 100ML PREMIX 100 ML IV SCH ×2 (12:37→14:41)
[2021-11-13] MEDS: CALCIUM CARB 600MG /VIT D 1 EACH TABLET PO SCH (13:04)
[2021-11-13] MEDS: FENOFIBRATE NANOCRYS (145 MG) 145 MG TABLET PO SCH (16:50)
[2021-11-13] MEDS ORDERED: REMDESIVIR (CHARGED) 200 MG, *LOADING DOSE 1 EA in IV NS 0.9% 210 ML IV ONE (18:00)
[2021-11-13 20:00] VITALS: BP 120/72
[2021-11-13] MEDS: TRAZODONE 50 MG TABLET PO SCH (22:16)
[2021-11-13] MEDS ORDERED: BENZONATATE 100 MG CAPSULE PO ONE (22:17)
[2021-11-14] MEDS: MEROPENEM 1 G in IV NS 0.9% 100 ML IV SCH ×3 (05:11→21:44)
[2021-11-14] MEDS: MORPHINE SULFATE INJ 2 MG/ML DISP.SYRIN IV PRN ×5 (05:15→23:44)
[2021-11-14] MEDS: BLOOD SUGAR DIAGNOSTIC 1 EACH STRIP IN SCH ×3 (05:31→17:19)
[2021-11-14] MEDS: INSULIN REGULAR, HUMAN 100 UNIT/ML 3 ML VIAL SQ PRN ×3 (05:32→17:22)
[2021-11-14] MEDS: LORAZEPAM INJ 2 MG/ML VIAL IV PRN ×3 (06:32→21:44)
[2021-11-14 06:48] LABS: HEMATOCRIT 28 % (39-51); HEMOGLOBIN 9.4 g/dL (13.5-17.5); LYMPHOCYTES # (AUTO) 0.4 K/uL (0.8-4.8); LYMPHOCYTES % (AUTO) 19.9 % (20.0-44.0); MEAN CORPUSCULAR HGB CONC 33 g/dl (31.0-36.0); MEAN CORPUSCULAR VOLUME 83 fL (80-96); MONOCYTES # (AUTO) 0.2 K/uL (0.1-1.30); MONOCYTES % (AUTO) 9.2 % (2.0-12.0); NEUTROPHILS # (AUTO) 1.4 K/uL (1.8-8.9); NEUTROPHILS % (AUTO) 70.9 % (43.0-81.0); PLATELET COUNT (AUTO) 162 K/uL (150-450); RED BLOOD CELL COUNT(AUTO) 3.42 MIL/uL (4.5-6.0)
[2021-11-14 07:25] LABS: ALBUMIN 2.9 g/dL (3.4-5.0); BILIRUBIN,TOTAL 0.4 mg/dL (0.2-1.0); CREATININE 0.8 mg/dL (0.6-1.3); MAGNESIUM 2.1 mg/dL (1.8-2.4); PHOSPHORUS 3.6 mg/dL (2.5-4.9); POTASSIUM 4.2 mmol/L (3.5-5.1); TOTAL PROTEIN, SERUM 7.2 g/dL (6.4-8.2)
[2021-11-14 07:35] LABS: LIPASE 349 U/L (73-393)
[2021-11-14 08:00] VITALS: BP 151/81
[2021-11-14 08:03] LABS: CALCIUM, SERUM 9.2 mg/dL (8.5-10.1)
[2021-11-14] MEDS: PANTOPRAZOLE 40 MG TABLET.DR PO SCH (08:22)
[2021-11-14] MEDS: DRONABINOL (2.5 MG) 2.5 MG CAPSULE PO SCH ×2 (08:22→16:06)
[2021-11-14] MEDS: METOCLOPRAMIDE HCL 10 MG TABLET PO SCH ×3 (08:22→16:06)
[2021-11-14] MEDS: APIXABAN 5 MG TABLET PO SCH ×2 (08:22→16:26)
[2021-11-14] MEDS: FENOFIBRATE NANOCRYS (145 MG) 145 MG TABLET PO SCH (08:22)
[2021-11-14] MEDS: POLYETHYLENE GLYCOL 3350 17 GM POWD.PACK PO SCH (08:22)
[2021-11-14] MEDS: CALCIUM CARB 600MG /VIT D 1 EACH TABLET PO SCH (08:23)
[2021-11-14] MEDS: DEXAMETHASONE SOD PHOSPHATE 10 MG/ML VIAL IV SCH ×2 (08:24→16:07)
[2021-11-14 11:56] LABS: FERRITIN 2531 ng/mL (8-388)
[2021-11-14] MEDS ORDERED: REMDESIVIR (CHARGED) 100 MG in IV NS 0.9% 230 ML IV SCH (13:30)
[2021-11-14] MEDS: REMDESIVIR (CHARGED) 100 MG in IV NS 0.9% 100 ML IV SCH (14:45)
[2021-11-14 20:00] VITALS: BP 134/85
[2021-11-14] MEDS: TRAZODONE 50 MG TABLET PO SCH (21:45)
[2021-11-15] MEDS: BLOOD SUGAR DIAGNOSTIC 1 EACH STRIP IN SCH ×5 (00:17→23:45)
[2021-11-15] MEDS: INSULIN REGULAR, HUMAN 100 UNIT/ML 3 ML VIAL SQ PRN ×3 (00:23→17:39)
[2021-11-15 04:00] VITALS: BP 124/82
[2021-11-15] MEDS: MORPHINE SULFATE INJ 2 MG/ML DISP.SYRIN IV PRN ×5 (05:13→22:20)
[2021-11-15] MEDS: MEROPENEM 1 G in IV NS 0.9% 100 ML IV SCH ×3 (05:14→21:13)
[2021-11-15 08:00] VITALS: BP 128/79
[2021-11-15] MEDS: PANTOPRAZOLE 40 MG TABLET.DR PO SCH (08:17)
[2021-11-15] MEDS: CALCIUM CARB 600MG /VIT D 1 EACH TABLET PO SCH (08:17)
[2021-11-15] MEDS: DEXAMETHASONE SOD PHOSPHATE 10 MG/ML VIAL IV SCH ×2 (08:17→17:26)
[2021-11-15] MEDS: FENOFIBRATE NANOCRYS (145 MG) 145 MG TABLET PO SCH (08:18)
[2021-11-15] MEDS: DRONABINOL (2.5 MG) 2.5 MG CAPSULE PO SCH ×2 (08:18→17:26)
[2021-11-15] MEDS: METOCLOPRAMIDE HCL 10 MG TABLET PO SCH ×3 (08:18→17:26)
[2021-11-15] MEDS: LORAZEPAM INJ 2 MG/ML VIAL IV PRN ×3 (08:18→23:33)
[2021-11-15] MEDS: APIXABAN 5 MG TABLET PO SCH ×2 (08:26→17:27)
[2021-11-15] MEDS: POLYETHYLENE GLYCOL 3350 17 GM POWD.PACK PO SCH (08:32)
[2021-11-15 09:35] LABS: ALBUMIN 2.6 g/dL (3.4-5.0); BILIRUBIN,TOTAL 0.4 mg/dL (0.2-1.0); CALCIUM, SERUM 8.6 mg/dL (8.5-10.1); CREATININE 0.7 mg/dL (0.6-1.3); MAGNESIUM 2.1 mg/dL (1.8-2.4); TOTAL PROTEIN, SERUM 6.5 g/dL (6.4-8.2)
[2021-11-15 09:37] LABS: ALBUMIN 2.7 g/dL (3.4-5.0); BILIRUBIN,DIRECT 0.2 mg/dL (0.0-0.2); BILIRUBIN,TOTAL 0.4 mg/dL (0.2-1.0); HEMATOCRIT 28 % (39-51); HEMOGLOBIN 9.2 g/dL (13.5-17.5); LYMPHOCYTES # (AUTO) 0.6 K/uL (0.8-4.8); LYMPHOCYTES % (AUTO) 11.2 % (20.0-44.0); MEAN CORPUSCULAR HGB CONC 33 g/dl (31.0-36.0); MEAN CORPUSCULAR VOLUME 83 fL (80-96); MONOCYTES # (AUTO) 0.5 K/uL (0.1-1.30); MONOCYTES % (AUTO) 9.1 % (2.0-12.0); NEUTROPHILS % (AUTO) 79.7 % (43.0-81.0); PLATELET COUNT (AUTO) 166 K/uL (150-450); RED BLOOD CELL COUNT(AUTO) 3.35 MIL/uL (4.5-6.0); TOTAL PROTEIN, SERUM 6.5 g/dL (6.4-8.2)
[2021-11-15] MEDS ORDERED: LORAZEPAM 0.5 MG TABLET PO ONE (11:00)
[2021-11-15] MEDS ORDERED: IOHEXOL-300 100 ML VIAL IV ONE (11:27)
[2021-11-15] MEDS ORDERED: IV NS 0.9% 250 ML IV ONE (11:27)
[2021-11-15] MEDS: REMDESIVIR (CHARGED) 100 MG in IV NS 0.9% 100 ML IV SCH (14:51)
[2021-11-15 16:00] VITALS: BP 146/79
[2021-11-15 20:00] VITALS: BP 159/81
[2021-11-15] MEDS: TRAZODONE 50 MG TABLET PO SCH (22:10)
[2021-11-16 04:00] VITALS: BP 126/79
[2021-11-16] MEDS: MEROPENEM 1 G in IV NS 0.9% 100 ML IV SCH (04:55)
[2021-11-16] MEDS: MORPHINE SULFATE INJ 2 MG/ML DISP.SYRIN IV PRN ×5 (04:55→22:19)
[2021-11-16] MEDS: BLOOD SUGAR DIAGNOSTIC 1 EACH STRIP IN SCH ×4 (05:23→23:25)
[2021-11-16] MEDS: LORAZEPAM INJ 2 MG/ML VIAL IV PRN ×3 (06:32→19:09)
[2021-11-16 07:03] LABS: BASOPHILS % (AUTO) 0.1 % (0.0-2.0); HEMATOCRIT 29 % (39-51); HEMOGLOBIN 9.5 g/dL (13.5-17.5); LYMPHOCYTES # (AUTO) 0.6 K/uL (0.8-4.8); LYMPHOCYTES % (AUTO) 12.9 % (20.0-44.0); MEAN CORPUSCULAR HGB CONC 33 g/dl (31.0-36.0); MEAN CORPUSCULAR VOLUME 83 fL (80-96); MONOCYTES # (AUTO) 0.5 K/uL (0.1-1.30); MONOCYTES % (AUTO) 10.3 % (2.0-12.0); NEUTROPHILS # (AUTO) 3.8 K/uL (1.8-8.9); NEUTROPHILS % (AUTO) 76.7 % (43.0-81.0); PLATELET COUNT (AUTO) 182 K/uL (150-450); WHITE BLOOD COUNT (AUTO) 4.9 K/uL (4.3-11.0)
[2021-11-16 07:17] LABS: ALBUMIN 2.8 g/dL (3.4-5.0); BILIRUBIN,DIRECT 0.2 mg/dL (0.0-0.2); BILIRUBIN,TOTAL 0.4 mg/dL (0.2-1.0); CALCIUM, SERUM 8.5 mg/dL (8.5-10.1); CREATININE 0.8 mg/dL (0.6-1.3); MAGNESIUM 2.1 mg/dL (1.8-2.4); PHOSPHORUS 3.2 mg/dL (2.5-4.9); TOTAL PROTEIN, SERUM 6.6 g/dL (6.4-8.2)
[2021-11-16] MEDS: FENOFIBRATE NANOCRYS (145 MG) 145 MG TABLET PO SCH (08:28)
[2021-11-16] MEDS: PANTOPRAZOLE 40 MG TABLET.DR PO SCH (08:28)
[2021-11-16] MEDS: CALCIUM CARB 600MG /VIT D 1 EACH TABLET PO SCH (08:28)
[2021-11-16] MEDS: DRONABINOL (2.5 MG) 2.5 MG CAPSULE PO SCH ×2 (08:28→16:03)
[2021-11-16] MEDS: METOCLOPRAMIDE HCL 10 MG TABLET PO SCH ×3 (08:29→16:03)
[2021-11-16] MEDS: DEXAMETHASONE SOD PHOSPHATE 10 MG/ML VIAL IV SCH ×2 (08:29→16:03)
[2021-11-16] MEDS: POLYETHYLENE GLYCOL 3350 17 GM POWD.PACK PO SCH (08:29)
[2021-11-16] MEDS: APIXABAN 5 MG TABLET PO SCH ×2 (08:30→16:04)
[2021-11-16] MEDS: INSULIN REGULAR, HUMAN 100 UNIT/ML 3 ML VIAL SQ PRN ×2 (11:47→17:29)
[2021-11-16] MEDS: REMDESIVIR (CHARGED) 100 MG in IV NS 0.9% 100 ML IV SCH (14:52)
[2021-11-16 20:00] VITALS: BP 139/89
[2021-11-16] MEDS: TRAZODONE 50 MG TABLET PO SCH (21:23)
[2021-11-17] MEDS: LORAZEPAM INJ 2 MG/ML VIAL IV PRN ×3 (01:19→19:25)
[2021-11-17] MEDS: MORPHINE SULFATE INJ 2 MG/ML DISP.SYRIN IV PRN ×5 (02:31→18:31)
[2021-11-17] MEDS: BLOOD SUGAR DIAGNOSTIC 1 EACH STRIP IN SCH ×3 (06:12→18:31)
[2021-11-17] MEDS: PANTOPRAZOLE 40 MG TABLET.DR PO SCH (06:44)
[2021-11-17 07:08] LABS: BASOPHILS % (AUTO) 0.2 % (0.0-2.0); HEMATOCRIT 29 % (39-51); HEMOGLOBIN 9.5 g/dL (13.5-17.5); LYMPHOCYTES # (AUTO) 0.8 K/uL (0.8-4.8); LYMPHOCYTES % (AUTO) 15.4 % (20.0-44.0); MEAN CORPUSCULAR HGB CONC 33 g/dl (31.0-36.0); MEAN CORPUSCULAR VOLUME 82 fL (80-96); MONOCYTES # (AUTO) 0.5 K/uL (0.1-1.30); MONOCYTES % (AUTO) 9.7 % (2.0-12.0); NEUTROPHILS # (AUTO) 4.1 K/uL (1.8-8.9); NEUTROPHILS % (AUTO) 74.7 % (43.0-81.0); PLATELET COUNT (AUTO) 177 K/uL (150-450); RED BLOOD CELL COUNT(AUTO) 3.49 MIL/uL (4.5-6.0); WHITE BLOOD COUNT (AUTO) 5.5 K/uL (4.3-11.0)
[2021-11-17 07:42] LABS: BILIRUBIN,DIRECT 0.2 mg/dL (0.0-0.2); BILIRUBIN,TOTAL 0.5 mg/dL (0.2-1.0); CALCIUM, SERUM 8.5 mg/dL (8.5-10.1); CREATININE 0.8 mg/dL (0.6-1.3); MAGNESIUM 2.2 mg/dL (1.8-2.4); PHOSPHORUS 3.9 mg/dL (2.5-4.9); POTASSIUM 4.2 mmol/L (3.5-5.1); TOTAL PROTEIN, SERUM 6.6 g/dL (6.4-8.2)
[2021-11-17] MEDS ORDERED: METO10TA3 PO (08:28)
[2021-11-17] MEDS ORDERED: METH4TAB3 PO (08:28)
[2021-11-17] MEDS ORDERED: APIX5TAB PO (08:28)
[2021-11-17 08:41] VITALS: BP 133/81
[2021-11-17] MEDS: APIXABAN 5 MG TABLET PO SCH ×2 (09:00→17:58)
[2021-11-17] MEDS: DRONABINOL (2.5 MG) 2.5 MG CAPSULE PO SCH ×2 (09:00→17:53)
[2021-11-17] MEDS: METOCLOPRAMIDE HCL 10 MG TABLET PO SCH ×3 (09:00→17:52)
[2021-11-17] MEDS: DEXAMETHASONE SOD PHOSPHATE 10 MG/ML VIAL IV SCH ×2 (10:10→17:54)
[2021-11-17 16:02] VITALS: BP 137/81
[2021-11-17] MEDS: FENOFIBRATE NANOCRYS (145 MG) 145 MG TABLET PO SCH (17:52)
[2021-11-17] MEDS: CALCIUM CARB 600MG /VIT D 1 EACH TABLET PO SCH (17:52)
[2021-11-17] MEDS: REMDESIVIR (CHARGED) 100 MG in IV NS 0.9% 100 ML IV SCH (17:53)
[2021-11-17] MEDS: POLYETHYLENE GLYCOL 3350 17 GM POWD.PACK PO SCH (17:53)
== END 2021-11-17 21:20 | disposition home or self-care (01) | DRG 423 ==
LOC: ER 16:55 → TRANSITION 23:51 → TELE 10-31 09:40 → MED 10-31 09:59 → MEDSG2 11-12 08:16
PROVIDERS: ADMIT Nurse Practitioner Acute Care; ATTEND Registered Nurse
PROC: 0W9F30Z Drainage of Abdominal Wall with Drainage Device, Percutaneous Approach (ICD-10-PCS; 2021-11-05)
PROC: 0F9G30Z Drainage of Pancreas with Drainage Device, Percutaneous Approach (ICD-10-PCS; 2021-11-05)
PROC: 0W9B3ZZ Drainage of Left Pleural Cavity, Percutaneous Approach (ICD-10-PCS; principal; 2021-11-09)
DX: E78.1 Pure hyperglyceridemia (principal); J96.01 Acute respiratory failure with hypoxia; J12.82 Pneumonia due to coronavirus disease 2019; K85.90 Acute pancreatitis without necrosis or infection, unspecified; U07.1 COVID-19; E44.0 Moderate protein-calorie malnutrition; D68.59 Other primary thrombophilia; Z74.09 Other reduced mobility; J90 Pleural effusion, not elsewhere classified; Z91.018 Allergy to other foods; Z79.84 Long term (current) use of oral hypoglycemic drugs; Z79.899 Other long term (current) drug therapy; E66.01 Morbid (severe) obesity due to excess calories; Z68.31 Body mass index [BMI] 31.0-31.9, adult; E78.5 Hyperlipidemia, unspecified; E11.65 Type 2 diabetes mellitus with hyperglycemia; K76.0 Fatty (change of) liver, not elsewhere classified; Z83.3 Family history of diabetes mellitus; K57.30 Diverticulosis of large intestine without perforation or abscess without bleeding; D64.9 Anemia, unspecified; D70.9 Neutropenia, unspecified; E87.0 Hyperosmolality and hypernatremia; E87.6 Hypokalemia; F41.9 Anxiety disorder, unspecified; E11.42 Type 2 diabetes mellitus with diabetic polyneuropathy; G89.4 Chronic pain syndrome; F10.10 Alcohol abuse, uncomplicated; Y90.9 Presence of alcohol in blood, level not specified; J98.11 Atelectasis; L02.211 Cutaneous abscess of abdominal wall; R18.8 Other ascites; K31.9 Disease of stomach and duodenum, unspecified; I82.891 Chronic embolism and thrombosis of other specified veins; E04.1 Nontoxic single thyroid nodule
CPT/HCPCS: 36415; 71045-TC; 74160-TC; 75989; 75989-TC; 76536-TC; 80048-TC; 80053-TC; 80076-TC; 80202-TC; 82040-TC; 82150-TC; 82232; 82378; 82728-TC; 82784; 82962-TC; 83540-TC; 83615-TC; 83690-TC; 83735-TC; 83880; 84100-TC; 84155; 84165; 84478-TC; 84484-TC; 85025-TC; 85378-TC; 85396; 85610-TC; 85730-TC; 86140-TC; 86225; 86235; 86301; 86334; 86431-TC; 86706; 86803; 87040-TC; 87070-TC; 87081-TC; 87340; 87806; 89051-TC; 97116-TC; 97530-TC; A4216; C9113; C9803; G0378; J0692; J1100; J1447; J1885; J2060; J2185; J2248; J2250; J2270; J2310; J2405; J3010; J3370; J3475; J3480; J3490; J7030; J7040; J7042; J7050; J7060; J8597; P9047; Q0167; Q9967